=== PATIENT | female | born 1940 | race Caucasian/White ===

== ENCOUNTER 2017-04-26 23:35 | Inpatient (IN) | payer OTHER, MEDICARE ==
[~2017-04-26] VITALS: Ht 154.9 cm; Wt 65.4 kg
[2017-04-26 23:52] VITALS: BP 160/77; PULSE 87; RESP 20; TEMP 98.1; O2SAT 92; O2SAT 99
--- NOTE | 2017-04-27 00:34 | PD ---
HPI Chief Complaint: Psychiatric Symptoms Time Seen by Provider: 00:14 Travel History International Travel<30 days: No Contact w/Intl Traveler<30days: No Traveled to known affect area: No History of Present Illness HPI 76yo F with PMH of dementia, HTN presents to the ED under Stone Act because she was confused and said she wants to kill herself. Pt is from [facility] assisted living and became more upset and confused after her left the facility. Pt denies any chest pain, sob, n/v, abdominal pain, focal weakness or numbness. PFSH Past Medical History Alzheimer's Disease: Yes Asthma: Yes Blood Disorders: No Anxiety: Yes Cardiovascular Problems: Yes Endocrine: Yes Gastrointestinal Disorders: Yes Genitourinary: No Hiatal Hernia: Yes Hypertension: Yes Immune Disorder: No Medical other: Yes (ALCOHOLIC LIVER DISEASE, HYPERLIPIDEMIA) Musculoskeletal: No Neurologic: No Psychiatric: No Respiratory: Yes Thyroid Disease: Yes Tetanus Vaccination: Unknown ?: Not Past Surgical History Endocrine Surgery: Yes Oral Surgery: Yes Thoracic Surgery: Yes Other Surgery: Yes Social History Alcohol Use: Yes Tobacco Use: No Substance Use: No Allergies-Medications (Allergen,Severity, Reaction): Coded Allergies: erythromycin base (Unverified Allergy, Severe, Hives, 04/27/17) Reported Meds & Prescriptions Reported Meds & Active Scripts Active Macrobid (Nitrofurantoin Monohydrate Macrocrystals) 100 Mg Capsule 100 Mg PO BID 7 Days Reported Ventolin Hfa 18 GM Inh (Albuterol Sulfate) 90 Mcg/Act Aer 2 Puff INH Q4H PRN Levothyroxine (Levothyroxine Sodium) 100 Mcg Tab 100 Mcg PO DAILY Hydrochlorothiazide 12.5 Mg Cap 12.5 Mg PO DAILY Donepezil 10 Mg Tab 10 Mg PO HS Buspirone (Buspirone HCl) 5 Mg Tab 5 Mg PO TID Benazepril (Benazepril HCl) 5 Mg Tab 5 Mg PO DAILY Review of Systems Except as stated in HPI: all other systems reviewed are Neg Physical Exam Narrative GENERAL: 76yo F in mild distress. SKIN: Focused skin assessment warm/dry. HEAD: Atraumatic. Normocephalic. EYES: Pupils equal and round. No scleral icterus. No injection or drainage. CARDIOVASCULAR: Regular rate and rhythm. No murmur appreciated. RESPIRATORY: No accessory muscle use. Clear to auscultation. Breath sounds equal bilaterally. GASTROINTESTINAL: Abdomen soft, non-tender, nondistended. MUSCULOSKELETAL: No obvious deformities. No clubbing. No cyanosis. No edema. NEUROLOGICAL: Awake and alert. No obvious cranial nerve deficits. Motor grossly within normal limits. Normal speech. PSYCHIATRIC: Appropriate mood and affect; insight and judgment normal. Data Data Last Documented VS Vital Signs Date Time Temp Pulse Resp B/P (MAP) Pulse Ox O2 Delivery O2 Flow Rate FiO2 04/27/17 10:13 166/74 (104) 04/27/17 09:08 97.8 71 16 97 Room Air Orders Orders Ct Brain W/O Iv Contrast(Rout) (04/27/17 ) Complete Blood Count With Diff (04/27/17 00:26) Basic Metabolic Panel (Bmp) (04/27/17 00:26) Alcohol (Ethanol) (04/27/17 00:26) Salicylates (Aspirin) (04/27/17 00:26) Tylenol (Acetaminophen) (04/27/17 00:26) Urinalysis - C+S If Indicated (04/27/17 01:06) Psych Screen (04/27/17 01:06) Thyroid Stimulating Hormone (04/27/17 00:26) Lorazepam Inj (Ativan Inj) (04/27/17 01:30) Urine Culture (04/27/17 01:15) Writer Producer / Telemetry JOE.Q8H (04/27/17 01:36) Nitrofurantoin Monohyd Macrocr (Macrobid (04/27/17 02:15) Diet Regular Basic (04/27/17 Breakfast) Hydrochlorothiazide (Microzide) (04/27/17 09:45) Admit Order (Ed Use Only) (04/27/17 11:58) Labs Laboratory Tests Test 04/27/17 00:50 04/27/17 01:15 White Blood Count 12.5 TH/MM3 Red Blood Count 4.81 MIL/MM3 Hemoglobin 15.5 GM/DL Hematocrit 45.4 % Mean Corpuscular Volume 94.5 FL Mean Corpuscular Hemoglobin 32.3 PG Mean Corpuscular Hemoglobin Concent 34.2 % Red Cell Distribution Width 13.1 % Platelet Count 308 TH/MM3 Mean Platelet Volume 9.4 FL Neutrophils (%) (Auto) 62.4 % Lymphocytes (%) (Auto) 27.4 % Monocytes (%) (Auto) 8.6 % Eosinophils (%) (Auto) 0.7 % Basophils (%) (Auto) 0.9 % Neutrophils # (Auto) 7.8 TH/MM3 Lymphocytes # (Auto) 3.4 TH/MM3 Monocytes # (Auto) 1.1 TH/MM3 Eosinophils # (Auto) 0.1 TH/MM3 Basophils # (Auto) 0.1 TH/MM3 CBC Comment DIFF FINAL Differential Comment Blood Urea Nitrogen 13 MG/DL Creatinine 0.80 MG/DL Random Glucose 91 MG/DL Calcium Level 9.3 MG/DL Sodium Level 139 MEQ/L Potassium Level 3.9 MEQ/L Chloride Level 99 MEQ/L Carbon Dioxide Level 30.6 MEQ/L Anion Gap 9 MEQ/L Estimat Glomerular Filtration Rate 70 ML/MIN Thyroid Stimulating Hormone 3rd Gen 0.862 uIU/ML Salicylates Level LESS THAN 1.7 MG/DL Acetaminophen Level LESS THAN 2.0 MCG/ML Ethyl Alcohol Level LESS THAN 3 MG/DL Urine Color YELLOW Urine Turbidity HAZY Urine pH 5.5 Urine Specific [place] 1.024 Urine Protein TRACE mg/dL Urine Glucose (UA) NEG mg/dL Urine Ketones 10 mg/dL Urine Occult Blood NEG Urine Nitrite NEG Urine Bilirubin NEG Urine Urobilinogen 2.0 MG/DL Urine Leukocyte Esterase LARGE Urine RBC 3 /hpf Urine WBC 22 /hpf Urine Squamous Epithelial Cells 5 /hpf Urine Transitional Epithelial Cells 1 /hpf Urine Bacteria RARE /hpf Urine Mucus MOD /lpf Microscopic Urinalysis Comment CULTURE INDICATED MDM Medical Decision Making Medical Screen Exam Complete: Yes Emergency Medical Condition: Yes Differential Diagnosis Dementia vs. UTI vs. electrolyte abnormality vs. metastasis Narrative Course 76yo F with dementia brought in under Stone Act for confusion and wanting to . Pt is calm and then having angry episodes and then is calm again. She has not been here since [address] brain. Labs reviewed, WBC 12.5. Sign out to PA to follow up CT, rest of labs, and UA and clear for psych evaluation. Pt became very agitated and a threat to herself and others. Ativan 2mg IM was ordered as well as continuous rn cardiac. Diagnosis Primary Impression: Dementia Qualified Codes: F03.90 - Unspecified dementia without behavioral disturbance Scripts Nitrofurantoin Monohydrate Macrocrystals (Macrobid) 100 Mg Capsule 100 MG PO BID for Infection for 7 Days, #14 CAP 0 Refills Prov: Deepali Wilson DO 04/27/17 Deepali Wilson DO Apr 27, 2017 00:34
[2017-04-27] MEDS ORDERED: HYDR12.57 PO (01:05)
[2017-04-27] MEDS ORDERED: DONE10TA7 PO (01:05)
[2017-04-27] MEDS ORDERED: BUSP5TAB PO (01:05)
[2017-04-27] MEDS ORDERED: LEVO100T5 PO (01:05)
[2017-04-27] MEDS ORDERED: VENTAER INH (01:05)
[2017-04-27] MEDS ORDERED: BENA5TAB PO (01:05)
[2017-04-27 01:17] LABS: AUTOMATED NEUTROPHIL # 7.8 TH/MM3 (1.8-7.7); BASOPHIL # 0.1 TH/MM3 (0-0.2); BASOPHIL % 0.9 % (0.0-2.0); EOSINOPHIL # 0.1 TH/MM3 (0-0.4); EOSINOPHIL % 0.7 % (0.0-4.0); HEMATOCRIT 45.4 % (35.0-46.0); HEMOGLOBIN 15.5 GM/DL (11.6-15.3); LYMPH % 27.4 % (9.0-44.0); LYMPHOCYTE # 3.4 TH/MM3 (1.0-4.8); MEAN CELL VOLUME 94.5 FL (80.0-100.0); MEAN CORPUSCULAR HEMOGLOBIN 32.3 PG (27.0-34.0); MEAN CORPUSCULAR HGB CONC 34.2 % (32.0-36.0); MEAN PLATELET VOLUME 9.4 FL (7.0-11.0); MONO % 8.6 % (0.0-8.0); MONOCYTE # 1.1 TH/MM3 (0-0.9); NEUT % 62.4 % (16.0-70.0); PLATELET COUNT 308 TH/MM3 (150-450); RED BLOOD COUNT 4.81 MIL/MM3 (4.00-5.30); RED CELL DISTRIBUTION WIDTH 13.1 % (11.6-17.2); WHITE BLOOD COUNT 12.5 TH/MM3 (4.0-11.0)
[2017-04-27 01:30] LABS: BACTERIA, URINE RARE /hpf; BILIRUBIN, URINE NEG (NEG); BLOOD, URINE NEG (NEG); GLUCOSE,URINE NEG (NEG); KETONE, URINE 10 mg/dL (NEG); MUCUS URINE MOD /lpf (OCC); NITRITE,URINE NEG (NEG); PH, URINE 5.5 (5.0-8.5); SQUAMOUS EPITHELIAL CELL URINE 5 /hpf (0-5); TRANSITIONAL EPI CELLS, URINE 1 /hpf; URINE COLOR YELLOW (YELLW/STRAW); URINE LEUKOCYTE ESTERASE LARGE (NEG)
[2017-04-27] MEDS ORDERED: LORazepam 2 MG/ML VIAL IM ONE (01:30)
[2017-04-27 01:46] LABS: ACETAMINOPHEN LESS THAN 2.0 MCG/ML (10.0-30.0); BICARBONATE 30.6 MEQ/L (21.0-32.0); BLOOD UREA NITROGEN 13 MG/DL (7-18); CALCIUM 9.3 MG/DL (8.5-10.1); CHLORIDE 99 MEQ/L (98-107); GLOMERULAR FILTRATION RATE 70 ML/MIN (>89); GLUCOSE,RANDOM 91 MG/DL (74-106); SODIUM (NA) 139 MEQ/L (136-145)
[2017-04-27] MEDS ORDERED: NITROFURANTOIN MONOHYD MACROCR 100 MG CAP PO ONE (02:15)
--- NOTE | 2017-04-27 03:07 | RADRPT ---
EXAM DATE/TIME: 04/27/2017 02:36 [place] COMPARISON: No previous studies available for comparison. INDICATIONS : Altered mental status. RADIATION DOSE: 52.13 CTDIvol (mGy) MEDICAL HISTORY : Hypertension. Alzheimer's. SURGICAL HISTORY : None. ENCOUNTER: Initial ACUITY: 1 day PAIN SCALE: Non-responsive LOCATION: cranial TECHNIQUE: Multiple contiguous axial images were obtained of the head. Using automated exposure control and adj ustment of the mA and/or kV according to patient size, radiation dose was kept as low as reasonably a chievable to obtain optimal diagnostic quality images. DICOM format image data is available electro nically for review and comparison. FINDINGS: CEREBRUM: The ventricles are normal for age. No evidence of midline shift, mass lesion, hemorrhage or acute in farction. No extra-axial fluid collections are seen. POSTERIOR FOSSA: The cerebellum and brainstem are intact. The 4th ventricle is midline. The cerebellopontine angle i s unremarkable. EXTRACRANIAL: The visualized portion of the orbits is intact. SKULL: The calvaria is intact. No evidence of skull fracture. CONCLUSION: 1. No evidence of acute intracranial pathology. No masses are identified. Cale Doss MD on April 27, 2017 at 3:03 Board Certified Radiologist. This report was verified electronically.
--- NOTE | 2017-04-27 03:13 | PD ---
Physical Exam Date Seen by Provider: Apr 27, 2017 Time Seen by Provider: 03:10 Data Data Last Documented VS Vital Signs Date Time Temp Pulse Resp B/P (MAP) Pulse Ox O2 Delivery O2 Flow Rate FiO2 04/26/17 23:52 98.1 87 20 160/77 (104) [address] Brain W/O Iv Contrast(Rout) (04/27/17 ) Complete Blood Count With Diff (04/27/17 00:26) Basic Metabolic Panel (Bmp) (04/27/17 00:26) Alcohol (Ethanol) (04/27/17 00:26) Salicylates (Aspirin) (04/27/17 00:26) Tylenol (Acetaminophen) (04/27/17 00:26) Urinalysis - C+S If Indicated (04/27/17 01:06) Psych Screen (04/27/17 01:06) Thyroid Stimulating Hormone (04/27/17 00:26) Lorazepam Inj (Ativan Inj) (04/27/17 01:30) Urine Culture (04/27/17 01:15) Art Preparator / Telemetry JOE.Q8H (04/27/17 01:36) Nitrofurantoin Monohyd Macrocr (Macrobid (04/27/17 02:15) Labs Laboratory Tests Test 04/27/17 00:50 04/27/17 01:15 White Blood Count 12.5 TH/MM3 Red Blood Count 4.81 MIL/MM3 Hemoglobin 15.5 GM/DL Hematocrit 45.4 % Mean Corpuscular Volume 94.5 FL Mean Corpuscular Hemoglobin 32.3 PG Mean Corpuscular Hemoglobin Concent 34.2 % Red Cell Distribution Width 13.1 % Platelet Count 308 TH/MM3 Mean Platelet Volume 9.4 FL Neutrophils (%) (Auto) 62.4 % Lymphocytes (%) (Auto) 27.4 % Monocytes (%) (Auto) 8.6 % Eosinophils (%) (Auto) 0.7 % Basophils (%) (Auto) 0.9 % Neutrophils # (Auto) 7.8 TH/MM3 Lymphocytes # (Auto) 3.4 TH/MM3 Monocytes # (Auto) 1.1 TH/MM3 Eosinophils # (Auto) 0.1 TH/MM3 Basophils # (Auto) 0.1 TH/MM3 CBC Comment DIFF FINAL Differential Comment Blood Urea Nitrogen 13 MG/DL Creatinine 0.80 MG/DL Random Glucose 91 MG/DL Calcium Level 9.3 MG/DL Sodium Level 139 MEQ/L Potassium Level 3.9 MEQ/L Chloride Level 99 MEQ/L Carbon Dioxide Level 30.6 MEQ/L Anion Gap 9 MEQ/L Estimat Glomerular Filtration Rate 70 ML/MIN Thyroid Stimulating Hormone 3rd Gen 0.862 uIU/ML Salicylates Level LESS THAN 1.7 MG/DL Acetaminophen Level LESS THAN 2.0 MCG/ML Ethyl Alcohol Level LESS THAN 3 MG/DL Urine Color YELLOW Urine Turbidity HAZY Urine pH 5.5 Urine Specific [place] 1.024 Urine Protein TRACE mg/dL Urine Glucose (UA) NEG mg/dL Urine Ketones 10 mg/dL Urine Occult Blood NEG Urine Nitrite NEG Urine Bilirubin NEG Urine Urobilinogen 2.0 MG/DL Urine Leukocyte Esterase LARGE Urine RBC 3 /hpf Urine WBC 22 /hpf Urine Squamous Epithelial Cells 5 /hpf Urine Transitional Epithelial Cells 1 /hpf Urine Bacteria RARE /hpf Urine Mucus MOD /lpf Microscopic Urinalysis Comment CULTURE INDICATED MDM Medical Record Reviewed: Yes Supervised Visit with LISET: Yes Interpretation(s) CT brain: No acute intercranial process Laboratory Tests Test 04/27/17 00:50 04/27/17 01:15 White Blood Count 12.5 TH/MM3 Red Blood Count 4.81 MIL/MM3 Hemoglobin 15.5 GM/DL Hematocrit 45.4 % Mean Corpuscular Volume 94.5 FL Mean Corpuscular Hemoglobin 32.3 PG Mean Corpuscular Hemoglobin Concent 34.2 % Red Cell Distribution Width 13.1 % Platelet Count 308 TH/MM3 Mean Platelet Volume 9.4 FL Neutrophils (%) (Auto) 62.4 % Lymphocytes (%) (Auto) 27.4 % Monocytes (%) (Auto) 8.6 % Eosinophils (%) (Auto) 0.7 % Basophils (%) (Auto) 0.9 % Neutrophils # (Auto) 7.8 TH/MM3 Lymphocytes # (Auto) 3.4 TH/MM3 Monocytes # (Auto) 1.1 TH/MM3 Eosinophils # (Auto) 0.1 TH/MM3 Basophils # (Auto) 0.1 TH/MM3 CBC Comment DIFF FINAL Differential Comment Blood Urea Nitrogen 13 MG/DL Creatinine 0.80 MG/DL Random Glucose 91 MG/DL Calcium Level 9.3 MG/DL Sodium Level 139 MEQ/L Potassium Level 3.9 MEQ/L Chloride Level 99 MEQ/L Carbon Dioxide Level 30.6 MEQ/L Anion Gap 9 MEQ/L Estimat Glomerular Filtration Rate 70 ML/MIN Thyroid Stimulating Hormone 3rd Gen 0.862 uIU/ML Salicylates Level LESS THAN 1.7 MG/DL Acetaminophen Level LESS THAN 2.0 MCG/ML Ethyl Alcohol Level LESS THAN 3 MG/DL Urine Color YELLOW Urine Turbidity HAZY Urine pH 5.5 Urine Specific [place] 1.024 Urine Protein TRACE mg/dL Urine Glucose (UA) NEG mg/dL Urine Ketones 10 mg/dL Urine Occult Blood NEG Urine Nitrite NEG Urine Bilirubin NEG Urine Urobilinogen 2.0 MG/DL Urine Leukocyte Esterase LARGE Urine RBC 3 /hpf Urine WBC 22 /hpf Urine Squamous Epithelial Cells 5 /hpf Urine Transitional Epithelial Cells 1 /hpf Urine Bacteria RARE /hpf Urine Mucus MOD /lpf Microscopic Urinalysis Comment CULTURE INDICATED Differential Diagnosis MDM: High Differential diagnoses: Schizophrenia, schizoaffective disorder, bipolar, anxiety, depression, adjustment reaction, mood disorder NOS, ODD, depressive disorder NOS, dementia, dementia with agitation, psychosis NOS, substance induced mood disorder, DMDD, Asperger syndrome, infection,electrolyte abnormality, malingering. Narrative Course Mental health screening discussed with the patient. Psychiatric screen ordered. Patient is given Macrobid 100 mg by mouth for UTI. Patient is also given 2 mg of Ativan for agitation. She has been out to the nursing station multiple times raising her voice and becoming a barrier to her care. The patient has been medically cleared. This is medical clearance for psychiatric admission, UTI Diagnosis Primary Impression: Dementia Qualified Codes: F03.90 - Unspecified dementia without behavioral disturbance Additional Impressions: Medical clearance for psychiatric admission UTI (urinary tract infection) Qualified Codes: N30.00 - Acute cystitis without hematuria Med/Other Pt SpecificInfo: Prescription(s) given Condition: Stable Raymundo Santos Apr 27, 2017 03:13
[2017-04-27] MEDS ORDERED: MACR100C2 PO (03:14)
[2017-04-27 09:08] VITALS: BP 177/75; PULSE 71; RESP 16; TEMP 97.8; O2SAT 97
[2017-04-27] MEDS ORDERED: HYDROCHLOROTHIAZIDE 12.5 MG CAP PO ONE (09:45)
[2017-04-27 10:13] VITALS: BP 166/74
[2017-04-27] MEDS ORDERED: LORazepam 2 MG/ML VIAL IM PRN (12:00)
[2017-04-27] MEDS ORDERED: ALUMINUM/MAGNESIUM/SIMETH 30 ML CUP PO PRN (12:00)
[2017-04-27] MEDS ORDERED: MAGNESIUM HYDROXIDE SUSP 30 ML CUP PO PRN (12:00)
[2017-04-27] MEDS ORDERED: ACETAMINOPHEN 325 MG TAB PO PRN (12:00)
[2017-04-27] MEDS ORDERED: ALBUTEROL SULFATE 90 MCG/ACT HFA 8 GM INHALER INH PRN (12:15)
--- NOTE | 2017-04-27 12:15 | HHI.HP ---
Provisional Diagnosis Admission Date [place]. Dementia with behavioral problems Certification of Person's Competence To Provide Express and Informed Consent I have personally examined Janette Pandya , a person being served at [facility] on, Apr 27, 2017 12:04. Express and informed consent means consent voluntarily given in writing, by a competent person, after sufficient explanation and disclosure of the subject matter involved to enable the person to make a knowing and willful decision without any element of force, fraud, deceit, duress, or other form of constraint or coercion. This person is 18 years of age or older, is not now known to be incompetent to consent to treatment with a guardian advocate, and does not have a health care surrogate or proxy currently making medical treatment decisions. I have found this person to be one of the following: [] Competent to provide express and informed consent, as defined above, for voluntary admission to this facility and is competent to provide express and informed consent for treatment. He/she has the consistent capacity to make well reasoned, willful, and knowing decisions concerning his or her medical or mental health treatment. The person fully and consistently understands the purpose of the admission for examination/placement and is fully capable of personally exercising all rights [place] [x] Incompetent to provide express and informed consent to voluntary admission, and this is incompetent to provide express and informed consent to treatment. The person must be transferred to involuntary status and a petition for a guardian advocate filed with the Circuit Court. [] Refusing to provide express and informed consent to voluntary admission but is competent to provide express and informed consent for treatment. The person must be discharged or transferred to involuntary status. Form shall be completed within 24 hours of a person's arrival at the receiving facility and filed in the clinical record of each person: 1. Admitted on a voluntary basis 2. Permitted to provide express and informed consent to his/her own treatment 3. Allowed to transfer from involuntary to voluntary status 4. Prior to permitting a person to consent to his or her own treatment after having been previously found incompetent to consent to treatment. History of Present Illness Capacity: Lacks Capacity HPI This is a 76-year-old female with a history of Alzheimer's dementia, brought in under a Stone act initiated by law enforcement. According to the Stone act, the patient was disoriented when she was at her residence, [place] a period one of the staff there indicated the patient wanted to throw herself from the sixth floor of the building. The patient appeared very confused and upset. The staff member indicated the patient was not taking her medicines as prescribed and continuously indicated that she wanted to and to find her . (The patient told this physician her was laying sod at their manufactured home. The patient's daughter told this physician the patient's is from her while he gets treatment for opiate abuse.) The personal injury law specialist also noted that the patient did not appear to remember things and indeed said that she just wanted to . Upon interview with this physician, the patient was initially attempting to take a bath on the floor of her emergency department room. She is disoriented to time, date and situation as well as place. She was oriented only to person. She denied making statements that she wanted to kill herself but certainly was unable to provide accurate information about other items in her history. When this physician spoke with the patient's daughter, who resides in [place] and has power of loading machine operator, a daughter indicated her mother was indeed confused, suffering from dementia and getting worse. Review of Systems ROS Limitations: Clinical Condition Psychiatric: COMPLAINS OF: Anxiety, Confusion, Suicidal Ideation Except as stated in HPI: all other systems reviewed are Neg Past Psych History Psychological trauma history Unknown. Patient poor historian. Violence risk - others (6 mos) Moderate to high Violence risk - self (6 mos) High Substance Abuse History Drugs/Alcohol past 12 months According to the patient's record, she has a history of alcoholism. Past Family Social History Coded Allergies: erythromycin base (Unverified Allergy, Severe, Hives, 04/27/17) Active Scripts Nitrofurantoin Monohydrate Macrocrystals (Macrobid) 100 Mg Capsule, 100 MG PO BID for Infection for 7 Days, #14 CAP 0 Refills Prov:Deepali Wilson 04/27/17 Reported Medications Albuterol 18 GM Inh (Ventolin Hfa 18 GM Inh) 90 Mcg/Act Aer, 2 PUFF INH Q4H Y for SHORTNESS OF BREATH, #1 INHALER 0 Refills 04/27/17 Levothyroxine (Levothyroxine) 100 Mcg Tab, 100 MCG PO DAILY for Thyroid, #30 TAB 0 Refills 04/27/17 Hydrochlorothiazide (Hydrochlorothiazide) 12.5 Mg Cap, 12.5 MG PO DAILY, #30 CAP 0 Refills 04/27/17 Donepezil (Donepezil) 10 Mg Tab, 10 MG PO HS for Dementia, #30 TAB 0 Refills 04/27/17 Buspirone (Buspirone) 5 Mg Tab, 5 MG PO TID for Anxiety, TAB 0 Refills 04/27/17 Benazepril (Benazepril) 5 Mg Tab, 5 MG PO DAILY for Blood Pressure Management, # 30 TAB 0 Refills 04/27/17 Family Psych History Unknown. Patient is a poor historian. Social History Patient is retired and unemployed. She has been residing by herself at [facility] since her moved out, approximately 2 weeks ago. She does not have a current history of drug or alcohol abuse. However, she has a previous history of alcohol abuse. Patient's daughter is supportive. Patient's Strengths (min. 2) Supportive daughter and has access to healthcare. Physical Exam GENERAL: SKIN: Warm and dry. HEAD: Normocephalic. EYES: No scleral icterus. No injection or drainage. NECK: Supple, trachea midline. No JVD or lymphadenopathy. CARDIOVASCULAR: Regular rate and rhythm without murmurs, gallops, or rubs. RESPIRATORY: Breath sounds equal bilaterally. No accessory muscle use. GASTROINTESTINAL: Abdomen soft, non-tender, nondistended. MUSCULOSKELETAL: No cyanosis, or edema. BACK: Nontender without obvious deformity. No CVA tenderness. Vital Signs Vital Signs Date Time Temp Pulse Resp B/P (MAP) Pulse Ox O2 Delivery O2 Flow Rate FiO2 04/27/17 10:13 166/74 (104) 04/27/17 09:08 97.8 71 16 97 Room Air I/O 04/27/17 04/27/17 04/28/17 08:00 16:00 00:00 Intake Total 300 ml Balance 300 ml Lab Results Test 04/27/17 00:50 04/27/17 01:15 White Blood Count 12.5 TH/MM3 Red Blood Count 4.81 MIL/MM3 Hemoglobin 15.5 GM/DL Hematocrit 45.4 % Mean Corpuscular Volume 94.5 FL Mean Corpuscular Hemoglobin 32.3 PG Mean Corpuscular Hemoglobin Concent 34.2 % Red Cell Distribution Width 13.1 % Platelet Count 308 TH/MM3 Mean Platelet Volume 9.4 FL Neutrophils (%) (Auto) 62.4 % Lymphocytes (%) (Auto) 27.4 % Monocytes (%) (Auto) 8.6 % Eosinophils (%) (Auto) 0.7 % Basophils (%) (Auto) 0.9 % Neutrophils # (Auto) 7.8 TH/MM3 Lymphocytes # (Auto) 3.4 TH/MM3 Monocytes # (Auto) 1.1 TH/MM3 Eosinophils # (Auto) 0.1 TH/MM3 Basophils # (Auto) 0.1 TH/MM3 CBC Comment DIFF FINAL Differential Comment Blood Urea Nitrogen 13 MG/DL Creatinine 0.80 MG/DL Random Glucose 91 MG/DL Calcium Level 9.3 MG/DL Sodium Level 139 MEQ/L Potassium Level 3.9 MEQ/L Chloride Level 99 MEQ/L Carbon Dioxide Level 30.6 MEQ/L Anion Gap 9 MEQ/L Estimat Glomerular Filtration Rate 70 ML/MIN Thyroid Stimulating Hormone 3rd Gen 0.862 uIU/ML Salicylates Level LESS THAN 1.7 MG/DL Acetaminophen Level LESS THAN 2.0 MCG/ML Ethyl Alcohol Level LESS THAN 3 MG/DL Urine Color YELLOW Urine Turbidity HAZY Urine pH 5.5 Urine Specific [place] 1.024 Urine Protein TRACE mg/dL Urine Glucose (UA) NEG mg/dL Urine Ketones 10 mg/dL Urine Occult Blood NEG Urine Nitrite NEG Urine Bilirubin NEG Urine Urobilinogen 2.0 MG/DL Urine Leukocyte Esterase LARGE Urine RBC 3 /hpf Urine WBC 22 /hpf Urine Squamous Epithelial Cells 5 /hpf Urine Transitional Epithelial Cells 1 /hpf Urine Bacteria RARE /hpf Urine Mucus MOD /lpf Microscopic Urinalysis Comment CULTURE INDICATED Date/Time Source Procedure Growth Status 04/27/17 01:15 Urine Clean Catch Urine Culture Pending Received Mental Status Examination Appearance: Appropriate Consciousness: Alert Orientation: Person Motor Activity: Normal gait Speech: Unremarkable Language: Adequate Fund of Knowledge: Inadequate Attention and Concentration: Easily Distracted Memory: Impaired Mood: Irritable Affect: Labile Thought Process & Associations: Intact Thought Content: Delusional Hallucination Type: None Delusion Type: Bizarre Suicidal Ideation: Yes Suicidal Plan: No Suicidal Intention: No Homicidal Ideation: No Homicidal Plan: No Homicidal Intention: No Insight: Poor Judgment: Poor Assessment & Plan Problem List: (1) Alzheimer's dementia with behavioral disturbance ICD Codes: G30.9 - Alzheimer's disease, unspecified; F02.81 - Dementia in other diseases classified elsewhere with behavioral disturbance (2) Dementia in other diseases classified elsewhere with behavioral disturbance ICD Codes: F02.81 - Dementia in other diseases classified elsewhere with behavioral disturbance Assessment & Plan Estimated LOS: days. 76-year-old female brought in under a Stone act for confusion and suicidal ideation, not taking her medicines as prescribed and inability to care for herself. For these reasons, the patient is being admitted for further evaluation and treatment. Patient is not considered competent to make medical decisions and her daughter was contacted by this physician and is willing to do so. This physician ordered a CBC, comprehensive metabolic panel, hemoglobin A1c and lipid panel. This is to determine if the patient has some infectious process or metabolic process which might be causing or contributing to her confusion and suicidality. Additionally, because of her age and psychotropic medicines, this physician is interested in getting a lipid panel and hemoglobin A1c to determine if she might have evidence of diabetes or some cardiovascular issue related to high cholesterol, etc. This physician also ordered thyroid stimulating hormone level, vitamin B-12 level and vitamin D level, again to determine if any deficiency in these areas is causing or contributing to the patient's confusion and emotional disturbance. This physician also ordered an EKG to determine the patient's cardiac conduction status, which can be adversely affected by both psychotropic and nonpsychotropic medicines. I have been consult was placed as the patient does have a history of hypothyroidism and cardiovascular disease. This physician spoke with the patient's nurse, Nenita, regarding her recent behavior. Case management will also be involved to assist with information gathering and disposition planning. Redd Miller MD Apr 27, 2017 12:15
[2017-04-27 13:24] VITALS: BP 137/61; PULSE 88; RESP 16; O2SAT 95
[2017-04-27 18:00] VITALS: BP 178/79; PULSE 88; RESP 18; TEMP 97.9; O2SAT 99
--- NOTE | 2017-04-27 20:44 | PD.CONS ---
HPI Service [facility] Hospitalists Consult Requested By Psychiatry Reason for Consult Medical management Primary Care Physician Unknown Diagnoses: History of Present Illness 76 years old female with history of dementia hypertension admitted to the psychiatry word under Stone act after she was confused trying to kill herself, Formerly [facility] consulted for medical management. Patient was laying in bed denied any chest pain short of breath abdominal pain diarrhea constipation fever or chillsH/O hypertension alcoholic liver disease, hyperlipidemia and hypothyroidism as well as Alzheimer and asthma. To me she denied being aware of memory problems,Urinalysis ordered by ED or psychiatry showed positive leukocyte esterase with WBC 22 Review of Systems All systems reviewed and was positive for what is mentioned in history of present illness otherwise negative Past Family Social History Allergies: Coded Allergies: erythromycin base (Unverified Allergy, Severe, Hives, 04/27/17) Past Medical History as per history of present illness Past Surgical History Benign surgery in the past Family History Review with the patient,not aware of significant medical history runs in his family Social History As above history of alcohol abuse no tobacco or illicit drug abuse Physical Exam Vital Signs Vital Signs Date Time Temp Pulse Resp B/P (MAP) Pulse Ox O2 Delivery O2 Flow Rate FiO2 04/27/17 18:00 97.9 88 18 178/79 (112) 99 04/27/17 13:44 04/27/17 13:24 88 16 137/61 (86) 95 Room Air 04/27/17 10:13 166/74 (104) 04/27/17 09:08 97.8 71 16 177/75 (109) 97 Room Air 04/26/17 23:52 98.1 87 20 160/77 (104) 99 Physical Exam GENERAL: This is a well-nourished, well-developed patient, in no apparent distress. SKIN: No rashes, warm and dry HEAD: Atraumatic. Normocephalic. EYES: Pupils equal round and reactive. Extraocular motions intact. No scleral icterus. ENT: Nose without bleeding, or drainage, Airway patent. NECK: Trachea midline. Supple CARDIOVASCULAR: Regular rate and rhythm without murmurs, gallops, or rubs. RESPIRATORY: Fair air entry bilaterally. No wheezes, rales, or rhonchi. GASTROINTESTINAL: Abdomen soft, non-tender, nondistended. Positive bowel sounds MUSCULOSKELETAL: Extremities without clubbing, cyanosis, or edema. Pedal pulses appreciated NEUROLOGICAL: Awake and alert. Moves all extremity. Normal speech.no focal neurological deficit Laboratory Laboratory Tests Test 04/27/17 00:50 04/27/17 01:15 White Blood Count 12.5 Red Blood Count 4.81 Hemoglobin 15.5 Hematocrit 45.4 Mean Corpuscular Volume 94.5 Mean Corpuscular Hemoglobin 32.3 Mean Corpuscular Hemoglobin Concent 34.2 Red Cell Distribution Width 13.1 Platelet Count 308 Mean Platelet Volume 9.4 Neutrophils (%) (Auto) 62.4 Lymphocytes (%) (Auto) 27.4 Monocytes (%) (Auto) 8.6 Eosinophils (%) (Auto) 0.7 Basophils (%) (Auto) 0.9 Neutrophils # (Auto) 7.8 Lymphocytes # (Auto) 3.4 Monocytes # (Auto) 1.1 Eosinophils # (Auto) 0.1 Basophils # (Auto) 0.1 CBC Comment DIFF FINAL Differential Comment Blood Urea Nitrogen 13 Creatinine 0.80 Random Glucose 91 Calcium Level 9.3 Sodium Level 139 Potassium Level 3.9 Chloride Level 99 Carbon Dioxide Level 30.6 Anion Gap 9 Estimat Glomerular Filtration Rate 70 Thyroid Stimulating Hormone 3rd Gen 0.862 Salicylates Level LESS THAN 1.7 Acetaminophen Level LESS THAN 2.0 Ethyl Alcohol Level LESS THAN 3 Urine Color YELLOW Urine Turbidity HAZY Urine pH 5.5 Urine Specific Goodrich 1.024 Urine Protein TRACE Urine Glucose (UA) NEG Urine Ketones 10 Urine Occult Blood NEG Urine Nitrite NEG Urine Bilirubin NEG Urine Urobilinogen 2.0 Urine Leukocyte Esterase LARGE Urine RBC 3 Urine WBC 22 Urine Squamous Epithelial Cells 5 Urine Transitional Epithelial Cells 1 Urine Bacteria RARE Urine Mucus MOD Microscopic Urinalysis Comment CULTURE INDICATED Date/Time Source Procedure Growth Status 04/27/17 01:15 Urine Clean Catch Urine Culture Pending Received Result Diagram: 04/27/17 0050 04/27/17 0050 Imaging Last Impressions Head CT 04/27/17 0000 Signed Impressions: Service Date/Time: Thursday, April 27, 2017 02:36 - CONCLUSION: 1. No evidence of acute intracranial pathology. No masses are identified. Cale Doss MD Assessment and Plan Assessment and Plan 76 years old female admitted to [facility] due to suicide attempt, hospitalist consulted for medical management Hypertension Alcoholic liver disease Hyperlipidemia Hypothyroidism History of asthma History of Alzheimer DVT prophylaxis with ambulation Recommendation: Agree with continuing lisinopril hydrochlorothiazide levothyroxin and Aricept, patient started on Macrobid for UTI I agree with that for 3 days in case she is symptomatic. Agree with BMP ordered for tomorrow to check for her electrolyte and kidney function, we will follow along with you, Thank you for this consultation Discussed Condition With Patient Jose Alejandro Goodman MD Apr 27, 2017 20:44
[2017-04-27] MEDS: NITROFURANTOIN MONOHYD MACROCR 100 MG CAP PO SCH (21:00)
[2017-04-27] MEDS: DONEPEZIL HCL 5 MG TAB PO SCH (22:27)
[2017-04-28 05:43] VITALS: BP 161/74; PULSE 64; RESP 18; TEMP 97.2; O2SAT 96
[2017-04-28] MEDS: LEVOTHYROXINE SODIUM 100 MCG TAB PO SCH (05:45)
[2017-04-28] MEDS: HYDROCHLOROTHIAZIDE 12.5 MG CAP PO SCH (09:00)
[2017-04-28] MEDS: LISINOPRIL 5 MG TAB PO SCH (09:00)
[2017-04-28] MEDS: NITROFURANTOIN MONOHYD MACROCR 100 MG CAP PO SCH ×2 (09:00→22:03)
[2017-04-28 10:42] VITALS: BP 164/71; PULSE 74
--- NOTE | 2017-04-28 11:23 | HHI.PYPN ---
Subjective Remarks Patient initially admitted by Dr. Redd Miller to the initial psychiatric history and physical. I reviewed the chart and agreed with. I had done the initial psychiatric admission template orders. And review the medical reconciliation. Dr. Miller has done first opinion petition supporting Stone act I agree, patient meets criteria for involuntary psychiatric hospital physician the Stone act thus I'll cosign second opinion petition supporting Stone act. Patient seen by me in her room with nurse Odette. Patient laying in bed. She is alert though diffusely confused as to place time and situation. She is mildly irritable but acknowledging her poor memory. Though she does denies suicidality and does deny voices. She does not remember where she was living prior to coming in here. For now will continue medications per the med reconciliation. We'll attempt to reach patient's family to get further information concerning this lady Review of Systems Except as stated in HPI: all other systems reviewed are Neg Mental Status Examination Appearance: Appropriate Consciousness: Alert Orientation: Person Motor Activity: Normal gait Speech: Unremarkable Language: Adequate Fund of Knowledge: Inadequate Attention and Concentration: Easily Distracted Memory: Impaired Mood: Irritable Affect: Labile Thought Process & Associations: Intact Thought Content: Delusional Hallucination Type: None Delusion Type: Bizarre Suicidal Ideation: Yes Suicidal Plan: No Suicidal Intention: No Homicidal Ideation: No Homicidal Plan: No Homicidal Intention: No Insight: Poor Judgment: Poor Results Labs Date/Time Source Procedure Growth Status 04/27/17 01:15 Urine Clean Catch Urine Culture Pending Received Vitals/IOs Vital Signs Date Time Temp Pulse Resp B/P (MAP) Pulse Ox O2 Delivery O2 Flow Rate FiO2 04/28/17 10:42 74 164/71 (102) 04/28/17 05:43 97.2 18 96 04/27/17 13:24 Room Air Assessment & Plan Problem List: (1) Dementia in other diseases classified elsewhere with behavioral disturbance ICD Codes: F02.81 - Dementia in other diseases classified elsewhere with behavioral disturbance (2) ALZHEIMER'S DISEASE WITH LATE ONSET ICD Codes: G30.1 - ALZHEIMER'S DISEASE WITH LATE ONSET Assessment & Plan Estimated LOS: days patient remains confused and demented, somewhat irritable also. Compliant medication. For now continue treatment. Need to get further information from family if available to help work with placement issues Justification for Cont. Inpt. At this time patient will decompensate placed in a lower level of care Discharge Planning Need to get further information from family about placement issues Request HC Surrog/Guard Advoc?: Yes Silas Russo MD Apr 28, 2017 11:23
[2017-04-28 11:45] LABS: AUTOMATED NEUTROPHIL # 3.8 TH/MM3 (1.8-7.7); BASOPHIL # 0.1 TH/MM3 (0-0.2); BASOPHIL % 0.8 % (0.0-2.0); EOSINOPHIL # 0.4 TH/MM3 (0-0.4); EOSINOPHIL % 6.1 % (0.0-4.0); HEMATOCRIT 43.5 % (35.0-46.0); LYMPH % 20.8 % (9.0-44.0); LYMPHOCYTE # 1.3 TH/MM3 (1.0-4.8); MEAN CELL VOLUME 94.1 FL (80.0-100.0); MEAN CORPUSCULAR HEMOGLOBIN 32.5 PG (27.0-34.0); MEAN CORPUSCULAR HGB CONC 34.6 % (32.0-36.0); MEAN PLATELET VOLUME 9.8 FL (7.0-11.0); MONO % 12.3 % (0.0-8.0); MONOCYTE # 0.8 TH/MM3 (0-0.9); PLATELET COUNT 265 TH/MM3 (150-450); RED BLOOD COUNT 4.62 MIL/MM3 (4.00-5.30); RED CELL DISTRIBUTION WIDTH 13.3 % (11.6-17.2); WHITE BLOOD COUNT 6.4 TH/MM3 (4.0-11.0)
[2017-04-28 12:18] LABS: ALBUMIN 3.1 GM/DL (3.4-5.0); ALT (GPT) 16 U/L (10-53); AST (GOT) 20 U/L (15-37); BICARBONATE 33.7 MEQ/L (21.0-32.0); BLOOD UREA NITROGEN 5 MG/DL (7-18); CALCIUM 9.3 MG/DL (8.5-10.1); CHLORIDE 96 MEQ/L (98-107); CHOLESTEROL 238 MG/DL (120-200); CREATININE 0.71 MG/DL (0.50-1.00); GLOMERULAR FILTRATION RATE 80 ML/MIN (>89); GLUCOSE,RANDOM 82 MG/DL (74-106); SODIUM (NA) 137 MEQ/L (136-145); TRIGLYCERIDES 129 MG/DL (42-150)
[2017-04-28 12:28] LABS: ALKALINE PHOSPHATASE 68 U/L (45-117); CHOLESTEROL/ HDL RATIO 3.74 RATIO; HDL CHOLESTEROL 63.5 MG/DL (40.0-60.0); LDL CHOLESTEROL 149 MG/DL (0-99); TOTAL BILIRUBIN ADULT 1.2 MG/DL (0.2-1.0); TOTAL PROTEIN 6.7 GM/DL (6.4-8.2)
[2017-04-28] MEDS: LORazepam 1 MG TAB PO PRN ×2 (12:30→22:03)
[2017-04-28] MEDS ORDERED: POTASSIUM CHLORIDE 10 MEQ CONTROLLED RELEASE TAB PO ONE (13:15)
[2017-04-28] MEDS ORDERED: POTASSIUM CHLORIDE 10 MEQ CONTROLLED RELEASE TAB PO SCH (13:30)
[2017-04-28 13:39] LABS: HEMOGLOBIN A1C 5.3 % (4.3-6.0)
[2017-04-28] MEDS ORDERED: diphenhydrAMINE HCL 50 MG/ML VIAL ONE (15:32)
[2017-04-28] MEDS ORDERED: HALOPERIDOL LACTATE 5 MG/ML AMP ONE (15:32)
[2017-04-28] MEDS ORDERED: HALOPERIDOL LACTATE 5 MG/ML AMP IM STA (15:36)
[2017-04-28] MEDS ORDERED: LORazepam 2 MG/ML VIAL IM STA (15:36)
[2017-04-28] MEDS ORDERED: diphenhydrAMINE HCL 50 MG/ML VIAL IM STA (15:36)
[2017-04-28 16:45] VITALS: BP 100/62; PULSE 73; RESP 18; TEMP 97.2; O2SAT 95
[2017-04-28] MEDS: POTASSIUM CHLORIDE 10 MEQ CONTROLLED RELEASE TAB PO SCH ×2 (17:53→22:05)
--- NOTE | 2017-04-28 18:23 | HHI.PR ---
Subjective Remarks "Continue get me out of here" Sitting on the chair denied any acute symptoms, her potassium today is 2.7 and her cholesterol panel showing increased total cholesterol and LDL Objective Vitals Vital Signs Date Time Temp Pulse Resp B/P (MAP) Pulse Ox O2 Delivery O2 Flow Rate FiO2 04/28/17 16:45 97.2 73 18 100/62 (75) 95 04/28/17 10:42 74 164/71 (102) 04/28/17 05:43 97.2 64 18 161/74 (103) 96 I/O 04/27/17 04/27/17 04/27/17 04/28/17 04/28/17 04/28/17 07:00 15:00 23:00 07:00 15:00 23:00 Intake Total 500 ml 240 ml 120 ml Balance 500 ml 240 ml 120 ml Intake Oral 500 ml 240 ml 120 ml # Voids 2 1 1 Result Diagram: 04/28/17 1036 04/28/17 1036 Objective Remarks GENERAL: This is a well-nourished, well-developed patient, in no apparent distress. SKIN: No rashes, warm and dry HEAD: Atraumatic. Normocephalic. EYES: Pupils equal round and reactive. Extraocular motions intact. No scleral icterus. ENT: Nose without bleeding, or drainage, Airway patent. NECK: Trachea midline. Supple CARDIOVASCULAR: Regular rate and rhythm without murmurs, gallops, or rubs. RESPIRATORY: Fair air entry bilaterally. No wheezes, rales, or rhonchi. GASTROINTESTINAL: Abdomen soft, non-tender, nondistended. Positive bowel sounds MUSCULOSKELETAL: Extremities without clubbing, cyanosis, or edema. Pedal pulses appreciated NEUROLOGICAL: Awake and alert. Moves all extremity. Normal speech.no focal neurological deficit A/P Assessment and Plan 76 years old female admitted to [facility] due to suicide attempt, hospitalist consulted for medical management Acute hypokalemia, no report of diarrhea, vision not on diuretic Hypertension Alcoholic liver disease Hyperlipidemia withTotal cholesterol 238, LDL 149, HDL 63 Hypothyroidism History of asthma History of Alzheimer DVT prophylaxis with ambulation Recommendation: Monitor TAMMY, replete potassium will give 60 mEq by mouth 1 now and followed with 40 mEq after 4 hours then repeat potassium around 10 PM Continue lisinopril hydrochlorothiazide levothyroxin and Aricept, patient started on Macrobid for UTI I agree with that for 3 days in case she is symptomatic. Start Lipitor Jose Alejandro Goodman MD Apr 28, 2017 18:23
--- NOTE | 2017-04-28 18:35 | EKG ---
Date Performed: 04/27/2017 Time Performed: 13:18:17 PTAGE: 76 years EKG: Sinus rhythm WITH OCCASIONAL VENTRICULAR PREMATURE COMPLEXES NONSPECIFIC ST & T-WAVE ABNORMALITY BORDERLINE ECG PREVIOUS TRACING : 04/13/2005 13.30 SINCE PRIOR TRACING THERE HAS BEEN AN INCREASE IN THE LATER AL ST SEGMENT CHANGES AND THE PVC'S ARE NEW. Clinical correlation is recommended DOCTOR: Odette Dimas Interpretating Date/Time 04/28/2017 18:33:23
[2017-04-28] MEDS: ATORVASTATIN 20 MG TAB PO SCH (22:03)
[2017-04-28] MEDS: DONEPEZIL HCL 5 MG TAB PO SCH (22:03)
[2017-04-29] MEDS ORDERED: POTASSIUM CHLORIDE 20 MEQ CONTROLLED RELEASE TAB PO ONE (03:00)
[2017-04-29] MEDS: LEVOTHYROXINE SODIUM 100 MCG TAB PO SCH (04:35)
[2017-04-29 06:18] VITALS: BP 142/63; PULSE 83; RESP 16; TEMP 97.7; O2SAT 94
[2017-04-29] MEDS: HYDROCHLOROTHIAZIDE 12.5 MG CAP PO SCH (08:12)
[2017-04-29] MEDS: NITROFURANTOIN MONOHYD MACROCR 100 MG CAP PO SCH (08:12)
[2017-04-29] MEDS: LISINOPRIL 5 MG TAB PO SCH (08:12)
--- NOTE | 2017-04-29 11:54 | HHI.PYPN ---
Subjective Remarks Patient seen in her room with nurse Odette. Chart reviewed. Patient did show some out of control behaviors last night necessitating ETO of Haldol Ativan and Benadryl. Patient is calm this morning napping but arousable to continues diffusely confused. Did not remember me from yesterday. For now continue observation assessment Review of Systems Except as stated in HPI: all other systems reviewed are Neg Mental Status Examination Appearance: Appropriate Consciousness: Alert Orientation: Person Motor Activity: Normal gait Speech: Unremarkable Language: Adequate Fund of Knowledge: Inadequate Attention and Concentration: Easily Distracted Memory: Impaired Mood: Irritable Affect: Labile Thought Process & Associations: Intact Thought Content: Delusional Hallucination Type: None Delusion Type: Bizarre Suicidal Ideation: Yes Suicidal Plan: No Suicidal Intention: No Homicidal Ideation: No Homicidal Plan: No Homicidal Intention: No Insight: Poor Judgment: Poor Results Labs Test 04/28/17 22:54 Potassium Level 3.3 MEQ/L Date/Time Source Procedure Growth Status 04/27/17 01:15 Urine Clean Catch Urine Culture - Final 50-100,000 CFU/ML MIXED GRAM POSITIVE... Complete Vitals/IOs Vital Signs Date Time Temp Pulse Resp B/P (MAP) Pulse Ox O2 Delivery O2 Flow Rate FiO2 04/29/17 06:18 97.7 83 16 142/63 (89) 94 04/27/17 13:24 Room Air Intake and Output 04/29/17 04/29/17 04/29/17 07:59 15:59 23:59 Intake Total 120 ml 0 ml Balance 120 ml 0 ml Assessment & Plan Problem List: (1) Dementia in other diseases classified elsewhere with behavioral disturbance ICD Codes: F02.81 - Dementia in other diseases classified elsewhere with behavioral disturbance (2) ALZHEIMER'S DISEASE WITH LATE ONSET ICD Codes: G30.1 - ALZHEIMER'S DISEASE WITH LATE ONSET Assessment & Plan Estimated LOS: days patient continues confused and demented, did show behavior disorders last night. Needing ETO. We'll continue observation Justification for Cont. Inpt. At this time patient will decompensate if placed on lower level of care Discharge Planning To be determined Request HC Surrog/Guard Advoc?: Yes Silas Russo MD Apr 29, 2017 11:54
[2017-04-29 12:56] LABS: BICARBONATE 32.1 MEQ/L (21.0-32.0); CALCIUM 9.4 MG/DL (8.5-10.1); CREATININE 1.19 MG/DL (0.50-1.00); MAGNESIUM 2.4 MG/DL (1.5-2.5)
[2017-04-29] MEDS: LORazepam 1 MG TAB PO PRN ×2 (15:03→22:00)
--- NOTE | 2017-04-29 15:38 | HHI.PR ---
Subjective Remarks F/u hypokalemia. No vomiting but po not optimal dw RN. 2 loose stool no fever, nausea and abd pain Objective Vitals Vital Signs Date Time Temp Pulse Resp B/P (MAP) Pulse Ox O2 Delivery O2 Flow Rate FiO2 04/29/17 06:18 97.7 83 16 142/63 (89) 94 04/28/17 16:45 97.2 73 18 100/62 (75) 95 I/O 04/28/17 04/28/17 04/28/17 04/29/17 04/29/17 04/29/17 07:00 15:00 23:00 07:00 15:00 23:00 Intake Total 120 ml 0 ml 120 ml Balance 120 ml 0 ml 120 ml Intake Oral 120 ml 0 ml 120 ml # Voids 1 1 Result Diagram: 04/28/17 1036 04/29/17 1155 Imaging Last Impressions Head CT 04/27/17 0000 Signed Impressions: Service Date/Time: Thursday, April 27, 2017 02:36 - CONCLUSION: 1. No evidence of acute intracranial pathology. No masses are identified. Cale Doss MD Objective Remarks GENERAL: This is a well-nourished, well-developed patient, in no apparent distress. Not dehydrated SKIN: No rashes, warm and dry CARDIOVASCULAR: Regular rate and rhythm without murmurs, gallops, or rubs. RESPIRATORY: Fair air entry bilaterally. No wheezes, rales, or rhonchi. GASTROINTESTINAL: Abdomen soft, non-tender, nondistended. Positive bowel sounds MUSCULOSKELETAL: Extremities without clubbing, cyanosis, or edema. Pedal pulses appreciated NEUROLOGICAL: Awake and alert. Moves all extremity. Normal speech.no focal neurological deficit A/P Assessment and Plan 76 [facility], hospitalist consulted for medical management Acute hypokalemia from HCTZ and loose stool. Improved but has stool loose stool. Hold her potassium for now. Repeat BMP and magnesium in the morning Hypertension. Stable continue lisinopril but hold Hydrocort thiazide Hyperlipidemia. Continue Lipitor Abnormal urinalysis urine culture with contaminants discontinue Macrobid Acute on chronic kidney disease stage III. Consider IV hydration if worse. DVT prophylaxis with ambulation Discharge Planning Per psychiatry Christos Valverde MD Apr 29, 2017 15:38
[2017-04-29] MEDS: DONEPEZIL HCL 5 MG TAB PO SCH (21:00)
[2017-04-29] MEDS: ATORVASTATIN 20 MG TAB PO SCH (21:00)
[2017-04-30] MEDS: LEVOTHYROXINE SODIUM 100 MCG TAB PO SCH (05:36)
[2017-04-30 06:45] VITALS: BP 130/57; PULSE 81; RESP 18; TEMP 98.4; O2SAT 94
[2017-04-30] MEDS: LISINOPRIL 5 MG TAB PO SCH (09:13)
--- NOTE | 2017-04-30 11:06 | HHI.PYPN ---
Subjective Remarks Pt seen and discussed with staff. Pt received ativan 1mg PO last night and has been drowsy and groggy this morning, but has become alert. She states that she is confused and demands to know "'why am I here? What even is this place?" She has been cooperative with care. No SI/HI Mental Status Examination Appearance: Appropriate Consciousness: Alert Orientation: Person Motor Activity: Normal gait Speech: Unremarkable Language: Adequate Fund of Knowledge: Inadequate Attention and Concentration: Easily Distracted Memory: Impaired Mood: Irritable Affect: Irritable Thought Process & Associations: Intact Thought Content: Delusional Hallucination Type: None Delusion Type: Bizarre Suicidal Ideation: Yes Suicidal Plan: No Suicidal Intention: No Homicidal Ideation: No Homicidal Plan: No Homicidal Intention: No Insight: Poor Judgment: Poor Results Labs Test 04/29/17 11:55 Blood Urea Nitrogen 12 MG/DL Creatinine 1.19 MG/DL Random Glucose 83 MG/DL Calcium Level 9.4 MG/DL Magnesium Level 2.4 MG/DL Sodium Level 139 MEQ/L Potassium Level 4.0 MEQ/L Chloride Level 101 MEQ/L Carbon Dioxide Level 32.1 MEQ/L Anion Gap 6 MEQ/L Estimat Glomerular Filtration Rate 44 ML/MIN Date/Time Source Procedure Growth Status 04/27/17 01:15 Urine Clean Catch Urine Culture - Final 50-100,000 CFU/ML MIXED GRAM POSITIVE... Complete Vitals/IOs Vital Signs Date Time Temp Pulse Resp B/P (MAP) Pulse Ox O2 Delivery O2 Flow Rate FiO2 04/30/17 06:45 98.4 81 18 130/57 (81) 94 04/27/17 13:24 Room Air Intake and Output 04/30/17 04/30/17 05/01/17 08:00 16:00 00:00 Intake Total 0 ml Balance 0 ml Assessment & Plan Problem List: (1) Dementia in other diseases classified elsewhere with behavioral disturbance ICD Codes: F02.81 - Dementia in other diseases classified elsewhere with behavioral disturbance (2) ALZHEIMER'S DISEASE WITH LATE ONSET ICD Codes: G30.1 - ALZHEIMER'S DISEASE WITH LATE ONSET Assessment & Plan Continue current tx plan. Will lower ativan dosage to prevent oversedation. Estimated LOS: days Justification for Cont. Inpt. risk of decompensation Request HC Surrog/Guard Advoc?: Yes Jacqui Penn MD Apr 30, 2017 11:06
[2017-04-30] MEDS ORDERED: LORazepam 2 MG/ML VIAL IM PRN (12:00)
[2017-04-30] MEDS ORDERED: 1/2 NS + KCL 20 MEQ INJ 1,000 ML IV PRN (14:15)
--- NOTE | 2017-04-30 14:15 | HHI.PR ---
Subjective Remarks Follow-up loose stools and chronic kidney disease. Already had 2 loose stool today with decrease by mouth intake per nursing report denies nausea and abdominal pain. Labs pending Objective Vitals Vital Signs Date Time Temp Pulse Resp B/P (MAP) Pulse Ox O2 Delivery O2 Flow Rate FiO2 04/30/17 06:45 98.4 81 18 130/57 (81) 94 I/O 04/29/17 04/29/17 04/29/17 04/30/17 04/30/17 04/30/17 06:59 14:59 22:59 06:59 14:59 22:59 Intake Total 0 ml 240 ml 240 ml 240 ml Balance 0 ml 240 ml 240 ml 240 ml Intake Oral 0 ml 240 ml 240 ml 240 ml # Voids 1 4 2 # Bowel Movements 3 1 Result Diagram: 04/28/17 1036 04/29/17 1155 Objective Remarks GENERAL: This is a well-nourished, well-developed patient, in no apparent distress. Not dehydrated SKIN: No rashes, warm and dry CARDIOVASCULAR: Regular rate and rhythm without murmurs, gallops, or rubs. RESPIRATORY: Fair air entry bilaterally. No wheezes, rales, or rhonchi. GASTROINTESTINAL: Abdomen soft, non-tender, nondistended. Positive bowel sounds MUSCULOSKELETAL: Extremities without clubbing, cyanosis, or edema. Pedal pulses appreciated NEUROLOGICAL: Awake and alert. Moves all extremity. Normal speech.no focal neurological deficit A/P Assessment and Plan 76 years old female admitted to [facility] due to [facility] attempt, hospitalist consulted for medical management Acute hypokalemia from HCTZ and loose stool. Improved but has stool loose stool. Add Lactinex. C diff if elevated WC pending CBC today Hypertension. Stable continue lisinopril but hold Hydrochlorothiazide Hyperlipidemia. Continue Lipitor Abnormal urinalysis urine culture with contaminants discontinue Macrobid Acute on chronic kidney disease stage III. Consider IV hydration if worse. Pending labs DVT prophylaxis with ambulation Discharge Planning Per psychiatry Christos Valverde MD Apr 30, 2017 14:15
--- NOTE | 2017-04-30 15:03 | EKG ---
Date Performed: 04/28/2017 Time Performed: 15:00:42 PTAGE: 76 years EKG: Sinus rhythm NONSPECIFIC T-WAVE ABNORMALITY BORDERLINE ECG PREVIOUS TRACING : 04/27/2017 13.18 Since previous tracing, no significant change noted DOCTOR: Cory Goodwin Interpretating Date/Time 04/30/2017 15:03:26
[2017-04-30 16:58] LABS: BICARBONATE 29.3 MEQ/L (21.0-32.0); CALCIUM 9.4 MG/DL (8.5-10.1); CREATININE 0.91 MG/DL (0.50-1.00); MAGNESIUM 2.1 MG/DL (1.5-2.5)
[2017-04-30] MEDS: LACTOBACILLUS ACIDOPHILUS TAB PO SCH (17:06)
[2017-04-30 18:00] VITALS: BP 110/56; PULSE 72; RESP 17; TEMP 98.6; O2SAT 98
[2017-04-30] MEDS: DONEPEZIL HCL 5 MG TAB PO SCH (21:34)
[2017-04-30] MEDS: LORazepam 0.5 MG TAB PO PRN (21:34)
[2017-04-30] MEDS: ATORVASTATIN 20 MG TAB PO SCH (21:34)
[2017-05-01 05:00] VITALS: BP 121/57; PULSE 71; RESP 16; TEMP 98; O2SAT 95
[2017-05-01] MEDS: LEVOTHYROXINE SODIUM 100 MCG TAB PO SCH (05:39)
[2017-05-01 08:55] VITALS: BP 144/58
[2017-05-01] MEDS: LACTOBACILLUS ACIDOPHILUS TAB PO SCH ×3 (09:00→17:21)
[2017-05-01] MEDS: LISINOPRIL 5 MG TAB PO SCH (09:02)
[2017-05-01 10:41] LABS: AUTOMATED NEUTROPHIL # 5.6 TH/MM3 (1.8-7.7); BASOPHIL # 0.1 TH/MM3 (0-0.2); BASOPHIL % 0.6 % (0.0-2.0); EOSINOPHIL # 0.7 TH/MM3 (0-0.4); EOSINOPHIL % 8.2 % (0.0-4.0); HEMATOCRIT 48.1 % (35.0-46.0); HEMOGLOBIN 16.5 GM/DL (11.6-15.3); LYMPH % 17.1 % (9.0-44.0); LYMPHOCYTE # 1.5 TH/MM3 (1.0-4.8); MEAN CORPUSCULAR HEMOGLOBIN 32.5 PG (27.0-34.0); MEAN CORPUSCULAR HGB CONC 34.3 % (32.0-36.0); MEAN PLATELET VOLUME 10.3 FL (7.0-11.0); MONO % 8.8 % (0.0-8.0); MONOCYTE # 0.7 TH/MM3 (0-0.9); NEUT % 65.3 % (16.0-70.0); PLATELET COUNT 286 TH/MM3 (150-450); RED BLOOD COUNT 5.06 MIL/MM3 (4.00-5.30); RED CELL DISTRIBUTION WIDTH 13.3 % (11.6-17.2); WHITE BLOOD COUNT 8.5 TH/MM3 (4.0-11.0)
[2017-05-01] MEDS: LORazepam 0.5 MG TAB PO PRN ×2 (11:00→22:17)
[2017-05-01 11:14] LABS: BICARBONATE 31.7 MEQ/L (21.0-32.0); CALCIUM 9.5 MG/DL (8.5-10.1); CREATININE 0.88 MG/DL (0.50-1.00); MAGNESIUM 2.1 MG/DL (1.5-2.5)
--- NOTE | 2017-05-01 14:30 | HHI.PR ---
Subjective Remarks F/U ENA. Remains with poor PO. 2 formed stools today dw RN Objective Vitals Vital Signs Date Time Temp Pulse Resp B/P (MAP) Pulse Ox O2 Delivery O2 Flow Rate FiO2 05/01/17 08:55 144/58 (86) 05/01/17 05:00 98.0 71 16 121/57 (78) 95 04/30/17 18:00 98.6 72 17 110/56 (74) 98 I/O 04/30/17 04/30/17 04/30/17 05/01/17 05/01/17 05/01/17 07:00 15:00 23:00 07:00 15:00 23:00 Intake Total 0 ml 480 ml 240 ml 0 ml 300 ml Balance 0 ml 480 ml 240 ml 0 ml 300 ml Intake Oral 0 ml 480 ml 240 ml 0 ml 300 ml # Voids 2 4 2 1 # Bowel Movements 1 2 1 Result Diagram: 05/01/17 0910 05/01/17 0910 Imaging Last Impressions Head CT 04/27/17 0000 Signed Impressions: Service Date/Time: Thursday, April 27, 2017 02:36 - CONCLUSION: 1. No evidence of acute intracranial pathology. No masses are identified. Cale Doss MD Objective Remarks GENERAL: This is a well-nourished, well-developed patient, in no apparent distress. Not dehydrated SKIN: No rashes, warm and dry CARDIOVASCULAR: Regular rate and rhythm without murmurs, gallops, or rubs. RESPIRATORY: Fair air entry bilaterally. No wheezes, rales, or rhonchi. GASTROINTESTINAL: Abdomen soft, non-tender, nondistended. Positive bowel sounds MUSCULOSKELETAL: Extremities without clubbing, cyanosis, or edema. Pedal pulses appreciated NEUROLOGICAL: Awake and alert. Moves all extremity. Normal speech.no focal neurological deficit A/P Assessment and Plan 76 years old female admitted to [facility] due to [facility] attempt, hospitalist consulted for medical management Acute hypokalemia from HCTZ and loose stool. K 4.4 will order 30 meq Kcl x 1. Lactinex. C diff if elevated WC Hypertension. Stable continue lisinopril but hold Hydrochlorothiazide with poor PO Hyperlipidemia. Continue Lipitor Abnormal urinalysis urine culture with contaminants discontinue Macrobid Acute on chronic kidney disease stage III. Consider IV hydration if worse. Labs prn DVT prophylaxis with ambulation Discharge Planning Per psychiatry Christos Valverde MD May 01, 2017 14:30
[2017-05-01] MEDS ORDERED: POTASSIUM CHLORIDE 10 MEQ CONTROLLED RELEASE TAB PO ONE (15:00)
--- NOTE | 2017-05-01 16:35 | HHI.PYPN ---
Subjective Remarks Pt seen and discussed with staff. She was anxious and oppositional early in the morning (telling RN to shoot her), but calmed as day progressed and was able to enjoy visit and completed hygiene activities. She has also been more cooperative with staff. SHe reports that she is feeling good today and denies pain or discomfort.No SI/HI Mental Status Examination Appearance: Appropriate Consciousness: Alert Orientation: Person Motor Activity: Normal gait Speech: Unremarkable Language: Adequate Fund of Knowledge: Inadequate Attention and Concentration: Easily Distracted Memory: Impaired Mood: Other (calm) Affect: Appropriate Thought Process & Associations: Linear Thought Content: Delusional Hallucination Type: None Delusion Type: Bizarre Suicidal Ideation: No Suicidal Plan: No Suicidal Intention: No Homicidal Ideation: No Homicidal Plan: No Homicidal Intention: No Insight: Poor Judgment: Poor Results Labs Test 05/01/17 09:10 White Blood Count 8.5 TH/MM3 Red Blood Count 5.06 MIL/MM3 Hemoglobin 16.5 GM/DL Hematocrit 48.1 % Mean Corpuscular Volume 95.0 FL Mean Corpuscular Hemoglobin 32.5 PG Mean Corpuscular Hemoglobin Concent 34.3 % Red Cell Distribution Width 13.3 % Platelet Count 286 TH/MM3 Mean Platelet Volume 10.3 FL Neutrophils (%) (Auto) 65.3 % Lymphocytes (%) (Auto) 17.1 % Monocytes (%) (Auto) 8.8 % Eosinophils (%) (Auto) 8.2 % Basophils (%) (Auto) 0.6 % Neutrophils # (Auto) 5.6 TH/MM3 Lymphocytes # (Auto) 1.5 TH/MM3 Monocytes # (Auto) 0.7 TH/MM3 Eosinophils # (Auto) 0.7 TH/MM3 Basophils # (Auto) 0.1 TH/MM3 CBC Comment DIFF FINAL Differential Comment Blood Urea Nitrogen 14 MG/DL Creatinine 0.88 MG/DL Random Glucose 113 MG/DL Calcium Level 9.5 MG/DL Magnesium Level 2.1 MG/DL Sodium Level 136 MEQ/L Potassium Level 3.4 MEQ/L Chloride Level 95 MEQ/L Carbon Dioxide Level 31.7 MEQ/L Anion Gap 9 MEQ/L Estimat Glomerular Filtration Rate 63 ML/MIN Date/Time Source Procedure Growth Status 04/27/17 01:15 Urine Clean Catch Urine Culture - Final 50-100,000 CFU/ML MIXED GRAM POSITIVE... Complete Vitals/IOs Vital Signs Date Time Temp Pulse Resp B/P (MAP) Pulse Ox O2 Delivery O2 Flow Rate FiO2 05/01/17 08:55 144/58 (86) 05/01/17 05:00 98.0 71 16 95 04/27/17 13:24 Room Air Intake and Output 05/01/17 05/01/17 05/02/17 08:00 16:00 00:00 Intake Total 120 ml 300 ml Balance 120 ml 300 ml Assessment & Plan Problem List: (1) Dementia in other diseases classified elsewhere with behavioral disturbance ICD Codes: F02.81 - Dementia in other diseases classified elsewhere with behavioral disturbance (2) ALZHEIMER'S DISEASE WITH LATE ONSET ICD Codes: G30.1 - ALZHEIMER'S DISEASE WITH LATE ONSET Assessment & Plan Pt improving. Continue current tx plan. Estimated LOS: days Justification for Cont. Inpt. risk of decompensation Request HC Surrog/Guard Advoc?: Yes Jacqui Penn MD May 01, 2017 16:35
[2017-05-01 17:00] VITALS: BP 110/56; PULSE 72; RESP 17; TEMP 98.6; O2SAT 98
[2017-05-01 20:34] VITALS: BP 114/56; PULSE 89; RESP 16; TEMP 97.2; O2SAT 92
[2017-05-01] MEDS: ATORVASTATIN 20 MG TAB PO SCH (21:00)
[2017-05-01] MEDS: DONEPEZIL HCL 5 MG TAB PO SCH (21:00)
--- NOTE | 2017-05-01 21:14 | RADRPT ---
EXAM DATE/TIME: 05/01/2017 20:59 [facility] COMPARISON: No previous studies available for comparison. INDICATIONS : Left knee pain post fall. MEDICAL HISTORY : Hypertension. Alzheimer's. SURGICAL HISTORY : None. ENCOUNTER: Initial ACUITY: 4 - 6 days PAIN SCORE: 4/10 LOCATION: Left knee. FINDINGS: Four view examination of the left knee demonstrates no evidence of fracture or dislocation. Bony min eralization is normal. The articular surfaces are intact. The suprapatellar soft tissues have a nor mal configuration. No perceptible joint effusion. CONCLUSION: Intact left knee. Silas Marr MD on May 01, 2017 at 21:11 Board Certified Radiologist. This report was verified electronically.
--- NOTE | 2017-05-01 21:20 | RADRPT ---
EXAM DATE/TIME: 05/01/2017 20:57 [facility] COMPARISON: No previous studies available for comparison. INDICATIONS : Right knee pain post fall. MEDICAL HISTORY : Hypertension. Alzheimer's. SURGICAL HISTORY : None. ENCOUNTER: Initial ACUITY: 4 - 6 days PAIN SCORE: 4/10 LOCATION: Right knee. FINDINGS: Four view examination of the right knee demonstrates no evidence of fracture or dislocation. Bony mi neralization is normal. The articular surfaces are intact. The suprapatellar soft tissues have a no rmal configuration. CONCLUSION: No acute abnormality of the right knee. Silas Marr MD on May 01, 2017 at 21:17 Board Certified Radiologist. This report was verified electronically.
[2017-05-01 22:00] VITALS: BP 111/56; PULSE 90; RESP 16; O2SAT 94
[2017-05-02 05:30] VITALS: BP 144/66; PULSE 79; RESP 18; TEMP 98; O2SAT 96
[2017-05-02] MEDS: LEVOTHYROXINE SODIUM 100 MCG TAB PO SCH (06:36)
[2017-05-02] MEDS: LISINOPRIL 5 MG TAB PO SCH (08:24)
[2017-05-02] MEDS: LORazepam 0.5 MG TAB PO PRN (08:24)
[2017-05-02] MEDS: LACTOBACILLUS ACIDOPHILUS TAB PO SCH ×3 (08:24→17:13)
--- NOTE | 2017-05-02 12:45 | HHI.PR ---
Subjective Remarks Follow-up kidney disease, hypokalemia and diarrhea. Patient has no complaints. Improved oral intake discussed with RN. One formed BM today. Apparently had a fall yesterday bilateral knee x-ray unremarkable. Patient denies pain. Objective Vitals Vital Signs Date Time Temp Pulse Resp B/P (MAP) Pulse Ox O2 Delivery O2 Flow Rate FiO2 05/02/17 05:30 98.0 79 18 144/66 (92) 96 05/01/17 22:00 90 16 111/56 (74) 94 05/01/17 20:34 97.2 89 16 114/56 (75) 92 05/01/17 17:00 98.6 72 17 110/56 (74) 98 I/O 05/01/17 05/01/17 05/01/17 05/02/17 05/02/17 05/02/17 07:00 15:00 23:00 07:00 15:00 23:00 Intake Total 0 ml 420 ml 960 ml 240 ml 240 ml Balance 0 ml 420 ml 960 ml 240 ml 240 ml Intake Oral 0 ml 420 ml 960 ml 240 ml 240 ml # Voids 1 # Bowel Movements 1 Result Diagram: 05/01/17 0910 05/01/17 0910 Imaging Last Impressions Knee X-Ray 05/01/17 0000 Signed Impressions: Service Date/Time: Monday, May 01, 2017 20:57 - CONCLUSION: No acute abnormality of the right knee. Silas Marr MD Head CT 04/27/17 0000 Signed Impressions: Service Date/Time: Thursday, April 27, 2017 02:36 - CONCLUSION: 1. No evidence of acute intracranial pathology. No masses are identified. Cale Doss MD Objective Remarks GENERAL: This is a well-nourished, well-developed patient, in no apparent distress. Not dehydrated SKIN: No rashes, warm and dry CARDIOVASCULAR: Regular rate and rhythm without murmurs, gallops, or rubs. RESPIRATORY: Fair air entry bilaterally. No wheezes, rales, or rhonchi. GASTROINTESTINAL: Abdomen soft, non-tender, nondistended. Positive bowel sounds MUSCULOSKELETAL: Extremities without clubbing, cyanosis, or edema. Pedal pulses appreciated. Bilateral knees with no swelling or tenderness full Range of movement. NEUROLOGICAL: Awake and alert. Moves all extremity. Normal speech.no focal neurological deficit A/P Assessment and Plan 76 years old female admitted to [facility] due to suicide attempt, hospitalist consulted for medical management Acute hypokalemia from HCTZ and loose stool. Improved with replacement. Lactinex. C diff if elevated WC Hypertension. Stable continue lisinopril but hold Hydrochlorothiazide with poor PO Hyperlipidemia. Continue Lipitor Abnormal urinalysis urine culture with contaminants discontinue Macrobid Acute on chronic kidney disease stage III. Improved , Consider IV hydration if worse. Labs prn Fall. No apparent injury. Fall precautions. Physical therapy evaluation DVT prophylaxis with ambulation Medically stable, we'll sign off Discharge Planning Per psychiatry Christos Valverde MD May 02, 2017 12:45
[2017-05-02] MEDS ORDERED: ATOR20TA15 PO (14:48)
--- NOTE | 2017-05-02 15:56 | HHI.PYPN ---
Subjective Remarks Patient seen in dayroom with floor staff, chart review, patient calm pleasant with me denies suicidality homicidality voices or visions. States she is ready to go home. But she still needs medical clearance. For now to we will discontinue the various Ativan orders observe patient is drug free as possible Review of Systems Except as stated in HPI: all other systems reviewed are Neg Mental Status Examination Appearance: Appropriate Consciousness: Alert Orientation: Person Motor Activity: Normal gait Speech: Unremarkable Language: Adequate Fund of Knowledge: Inadequate Attention and Concentration: Easily Distracted Memory: Impaired Mood: Other (calm) Affect: Appropriate Thought Process & Associations: Linear Thought Content: Delusional Hallucination Type: None Delusion Type: Bizarre Suicidal Ideation: No Suicidal Plan: No Suicidal Intention: No Homicidal Ideation: No Homicidal Plan: No Homicidal Intention: No Insight: Poor Judgment: Poor Results Labs Date/Time Source Procedure Growth Status 04/27/17 01:15 Urine Clean Catch Urine Culture - Final 50-100,000 CFU/ML MIXED GRAM POSITIVE... Complete Vitals/IOs Vital Signs Date Time Temp Pulse Resp B/P (MAP) Pulse Ox O2 Delivery O2 Flow Rate FiO2 05/02/17 05:30 98.0 79 18 144/66 (92) 96 Intake and Output 05/02/17 05/02/17 05/02/17 07:59 15:59 23:59 Intake Total 480 ml 120 ml Balance 480 ml 120 ml Assessment & Plan Problem List: (1) Dementia in other diseases classified elsewhere with behavioral disturbance ICD Codes: F02.81 - Dementia in other diseases classified elsewhere with behavioral disturbance (2) ALZHEIMER'S DISEASE WITH LATE ONSET ICD Codes: G30.1 - ALZHEIMER'S DISEASE WITH LATE ONSET Assessment & Plan Estimated LOS: days patient calm cooperative fairly well oriented at this time. For now will continue treatment no change except discontinue the Ativan orders Justification for Cont. Inpt. At this time patient would decompensated placed a lower level of care Discharge Planning Possible return to her own home Request HC Surrog/Guard Advoc?: Yes Silas Russo MD May 02, 2017 15:56
[2017-05-02 17:43] VITALS: BP 131/65; PULSE 79; RESP 18; TEMP 97.9; O2SAT 96
[2017-05-02] MEDS: ATORVASTATIN 20 MG TAB PO SCH (21:47)
[2017-05-02] MEDS: DONEPEZIL HCL 5 MG TAB PO SCH (21:47)
[2017-05-03 06:00] VITALS: BP 149/67; PULSE 90; RESP 17; TEMP 97.9; O2SAT 97
[2017-05-03] MEDS: LEVOTHYROXINE SODIUM 100 MCG TAB PO SCH (06:20)
[2017-05-03] MEDS: LACTOBACILLUS ACIDOPHILUS TAB PO SCH ×2 (08:26→12:02)
[2017-05-03] MEDS: LISINOPRIL 5 MG TAB PO SCH (08:26)
--- NOTE | 2017-05-03 10:02 | PD.TTN ---
Patient Problems 1. Discharge planning 2. Medication compliance 3. Knowledge deficit 4. Lack of coping skills Progress Toward Goals Provider Present: Dr. Katelyn Russo Provider Input: Patient is cooperative and pleasant but does continue to have disorganization and confusion. Patient is progressing in treatment and is currently denying suicidial ideation, auditory and visual hallucinations. Nurse(s) Input: Patient is compliant with medications and is attending ADLs. Patient is observed to be pleasant in dayroom and is easily redirected. Psychiatric Counselors Present: JEREMIAH Almodovar Psych Therapist Input: Patient was residing at [facility] and upon stablization, patient will be able to return back to facility Regi Storey May 03, 2017 10:02
[2017-05-03] MEDS ORDERED: VENTAER INH (11:58)
[2017-05-03] MEDS ORDERED: DONE10TA7 PO (11:58)
[2017-05-03] MEDS ORDERED: LACT PO (11:58)
[2017-05-03] MEDS ORDERED: LEVO100T5 PO (11:58)
[2017-05-03] MEDS ORDERED: HYDR12.57 PO (11:58)
--- NOTE | 2017-05-03 12:06 | HHI.DS ---
Psychiatry Discharge Summary Inpatient Psychiatric care?: Yes Advance Directive: No Reason Not Provided: states doesnt have one. Mental Health AdvanceDirective: No Health Care Proxy: No Admission Admission Date Apr 27, 2017 at 12:00 Admission Diagnosis: (1) ALZHEIMER'S DISEASE WITH LATE ONSET ICD Code: G30.1 - ALZHEIMER'S DISEASE WITH LATE ONSET (2) Alzheimer's dementia with behavioral disturbance ICD Code: G30.9 - Alzheimer's disease, unspecified; F02.81 - Dementia in other diseases classified elsewhere with behavioral disturbance Brief History This is a 76-year-old female with a history of Alzheimer's dementia, brought in under a [place] act initiated by law enforcement. According to the [place] act, the patient was disoriented when she was at her residence, [facility] one of the staff there indicated the patient wanted to throw herself from the sixth floor of the building. The patient appeared very confused and upset. The staff member indicated the patient was not taking her medicines as prescribed and continuously indicated that she wanted to and to find her . (The patient told this physician her was laying sod at their manufactured home. The patient's daughter told this physician the patient's is from her while he gets treatment for opiate abuse.) The employment law attorney also noted that the patient did not appear to remember things and indeed said that she just wanted to . Upon interview with this physician, the patient was initially attempting to take a bath on the floor of her emergency department room. She is disoriented to time, date and situation as well as place. She was oriented only to person. She denied making statements that she wanted to kill herself but certainly was unable to provide accurate information about other items in her history. When this physician spoke with the patient's daughter, who resides in [place] and has power of employment law attorney, a daughter indicated her mother was indeed confused, suffering from dementia and getting worse. Tobacco Use In Past 30 Days: No Tobacco Past 30 Days Alcohol Use: 4 or More Times Per Week Hospital Course Patient's hospital course was uneventful. Patient showed calming of her behaviors decrease in her psychotic features, she has been eating well sleeping well and socializing on the unit. She denies suicidality homicidality voices or visions. Says she does miss her . At this time patient met maximum benefit of this hospitalization thus patient be discharged to her prior placement. Rx 1 month to follow-up with her PCP Results Blood Pressure 149 / 67 Vital Signs Date Time Temp Pulse Resp B/P (MAP) Pulse Ox O2 Delivery O2 Flow Rate FiO2 05/03/17 06:00 97.9 90 17 149/67 (94) 97 Laboratory Tests Test 04/30/17 15:47 05/01/17 09:10 Sodium Level 135 MEQ/L (136-145) Estimat Glomerular Filtration Rate 60 ML/MIN (>89) 63 ML/MIN (>89) Hemoglobin 16.5 GM/DL (11.6-15.3) Hematocrit 48.1 % (35.0-46.0) Monocytes (%) (Auto) 8.8 % (0.0-8.0) Eosinophils (%) (Auto) 8.2 % (0.0-4.0) Eosinophils # (Auto) 0.7 TH/MM3 (0-0.4) Random Glucose 113 MG/DL (74-106) Potassium Level 3.4 MEQ/L (3.5-5.1) Chloride Level 95 MEQ/L (98-107) Laboratory Results Test 04/28/17 10:36 Cholesterol Level 238 MG/DL (120-200) HDL Cholesterol 63.5 MG/DL (40.0-60.0) Hemoglobin A1c 5.3 % (4.3-6.0) LDL Cholesterol 149 MG/DL (0-99) Triglycerides Level 129 MG/DL (42-150) Summary of Procedures None done Imaging Last Impressions Knee X-Ray 05/01/17 0000 Signed Impressions: Service Date/Time: Monday, May 01, 2017 20:57 - CONCLUSION: No acute abnormality of the right knee. Silas Marr MD Head CT 04/27/17 0000 Signed Impressions: Service Date/Time: Thursday, April 27, 2017 02:36 - CONCLUSION: 1. No evidence of acute intracranial pathology. No masses are identified. Cale Doss MD Pending results at discharge: No Medications # of Antipsychotic meds at D/C: 0 Approp Antipsych med options 1 - Minimum of three failed multiple trials of monotherapy. 2 - Documented plan to taper to monotherapy due to previous use of multiple meds OR cross-taper in progress at D/C. 3 - Documentation of augmentation of Clozapine. 4 - Justification other than those listed in allowable values 1-3, document here : Discharge Discharge Date: May 03, 2017 Discharge Diagnosis: (1) ALZHEIMER'S DISEASE WITH LATE ONSET Diagnosis: Principal ICD Code: G30.1 - ALZHEIMER'S DISEASE WITH LATE ONSET (2) Dementia in other diseases classified elsewhere with behavioral disturbance Diagnosis: Principal ICD Code: F02.81 - Dementia in other diseases classified elsewhere with behavioral disturbance Pt Condition on Discharge: Stable Discharge Disposition: Discharge Home Discharge Instructions Diet Instructions: As Tolerated, No Restrictions Activities you can perform: Regular-No Restrictions Scheduled Appointment: follow-up PCP Discharge Time > 30 minutes Mental Status Examination Appearance: Appropriate Consciousness: Alert Orientation: Person Motor Activity: Normal gait Speech: Unremarkable Language: Adequate Fund of Knowledge: Inadequate Attention and Concentration: Easily Distracted Memory: Impaired Mood: Other (calm) Affect: Appropriate Thought Process & Associations: Linear Thought Content: Delusional Hallucination Type: None Delusion Type: Bizarre Suicidal Ideation: No Suicidal Plan: No Suicidal Intention: No Homicidal Ideation: No Homicidal Plan: No Homicidal Intention: No Insight: Poor Judgment: Poor Discharge/Advance Care Plan Health Problems: (1) Dementia in other diseases classified elsewhere with behavioral disturbance (2) ALZHEIMER'S DISEASE WITH LATE ONSET Goals to promote your health * To prevent worsening of your condition and complications * To maintain your health at the optimal level Directions to meet your goals Take your medications as prescribed Follow your dietary instruction Follow activity as directed Keep your appointments as scheduled Take your immunizations and boosters as scheduled If your symptoms worsen call your PCP, if no PCP go to Urgent Care Center or Emergency Room For 08/11 questions related to your inpatient stay or results of tests pending at discharge, please contact Dr. Silas Russo at Smoking is Dangerous to Your Health. Avoid second hand smoking Silas Russo MD May 03, 2017 12:06
== END 2017-05-03 13:35 | disposition home or self-care (01) | DRG 57 ==
LOC: NEPD 23:35 → NEDA 04-27 12:00 → H250 04-27 14:30
PROVIDERS: ADMIT Psychiatry & Neurology Psychiatry; ATTEND Psychiatry & Neurology Psychiatry
DX: G30.1 Alzheimer's disease with late onset (principal); N17.9 Acute kidney failure, unspecified; F02.81 Dementia in other diseases classified elsewhere, unspecified severity, with behavioral disturbance; R45.851 Suicidal ideations; K70.9 Alcoholic liver disease, unspecified; N18.3 Chronic kidney disease, stage 3 (moderate); N39.0 Urinary tract infection, site not specified; F22 Delusional disorders; F41.9 Anxiety disorder, unspecified; I12.9 Hypertensive chronic kidney disease with stage 1 through stage 4 chronic kidney disease, or unspecified chronic kidney disease; E78.5 Hyperlipidemia, unspecified; I25.10 Atherosclerotic heart disease of native coronary artery without angina pectoris; E03.9 Hypothyroidism, unspecified; J45.909 Unspecified asthma, uncomplicated; E87.6 Hypokalemia; T50.2X5A Adverse effect of carbonic-anhydrase inhibitors, benzothiadiazides and other diuretics, initial encounter; R19.7 Diarrhea, unspecified; F10.20 Alcohol dependence, uncomplicated; Y90.0 Blood alcohol level of less than 20 mg/100 ml; Z88.1 Allergy status to other antibiotic agents
CPT/HCPCS: 70450; 73564; 80048; 80053; 80061; 80307; 81001; 82306; 82607; 83036; 83735; 84132; 84443; 85025; 87086; 93005; 96372; J1200; J1630; J2060

== ENCOUNTER 2017-05-05 00:45 | Inpatient (IN) | payer OTHER, MEDICARE ==
[~2017-05-05] VITALS: Ht 152.4 cm; Wt 62.9 kg
[~2017-05-05 00:45] MED LIST: ATOR20TA15 PO; BENA5TAB PO; DONE10TA7 PO; HYDR12.57 PO; LACT PO; LEVO100T5 PO; VENTAER INH
[2017-05-05 01:01] VITALS: BP 174/88; PULSE 90; RESP 18; TEMP 98; O2SAT 96
[2017-05-05 01:47] LABS: AUTOMATED NEUTROPHIL # 6.2 TH/MM3 (1.8-7.7); BASOPHIL # 0.1 TH/MM3 (0-0.2); EOSINOPHIL # 0.3 TH/MM3 (0-0.4); EOSINOPHIL % 2.9 % (0.0-4.0); HEMATOCRIT 47.4 % (35.0-46.0); HEMOGLOBIN 15.9 GM/DL (11.6-15.3); LYMPHOCYTE # 3.7 TH/MM3 (1.0-4.8); MEAN CELL VOLUME 94.4 FL (80.0-100.0); MEAN CORPUSCULAR HEMOGLOBIN 31.7 PG (27.0-34.0); MEAN CORPUSCULAR HGB CONC 33.6 % (32.0-36.0); MEAN PLATELET VOLUME 9.9 FL (7.0-11.0); MONOCYTE # 0.9 TH/MM3 (0-0.9); NEUT % 55.1 % (16.0-70.0); PLATELET COUNT 330 TH/MM3 (150-450); RED BLOOD COUNT 5.02 MIL/MM3 (4.00-5.30); RED CELL DISTRIBUTION WIDTH 13.6 % (11.6-17.2); WHITE BLOOD COUNT 11.3 TH/MM3 (4.0-11.0)
--- NOTE | 2017-05-05 01:49 | PD ---
HPI Chief Complaint: Psychiatric Symptoms Time Seen by Provider: 01:01 Travel History International Travel<30 days: No Contact w/Intl Traveler<30days: No Traveled to known affect area: No History of Present Illness HPI 76-year-old white female presents to emergency department under [facility] by PD. The patient initially was transferred to [facility] but was then deferred to [facility] because there outside their capacity to care for this patient. The patient allegedly had made statements to staff that she wanted to jump out of a window and . She also stated that she had made a statement that she should take a gun out and ended it. The patient states that she was upset with the staff. She denies any true suicidal or homicidal ideation. No toxic ingestions. This is a patient who had just been seen in the ER under [facility] earlier this month. PFSH Past Medical History Alzheimer's Disease: Yes Asthma: Yes Blood Disorders: No Anxiety: No Depression: No Cancer: Yes Cardiovascular Problems: Yes High Cholesterol: Yes Chemotherapy: Yes Cerebrovascular Accident: No Endocrine: Yes (removal of thyroid) Gastrointestinal Disorders: Yes (colon cancer (sigmoid)) Genitourinary: No Hiatal Hernia: Yes Hypertension: Yes Immune Disorder: No Musculoskeletal: No Neurologic: Yes (dementia) Psychiatric: No Respiratory: Yes Radiation Therapy: Yes Seizures: No Thyroid Disease: Yes ?: Not Past Surgical History Abdominal Surgery: Yes (colon resection for cancer) Endocrine Surgery: Yes (throidectomy) Oral Surgery: Yes Thoracic Surgery: Yes Other Surgery: Yes (thyroidectomy, colon resection) Social History Alcohol Use: Yes Tobacco Use: No Substance Use: No Allergies-Medications (Allergen,Severity, Reaction): Coded Allergies: erythromycin base (Unverified Allergy, Severe, Hives, 04/27/17) Reported Meds & Prescriptions Reported Meds & Active Scripts Active Macrobid (Nitrofurantoin Monohydrate Macrocrystals) 100 Mg Capsule 100 Mg PO BID 10 Days Acidophilus/l-Sporogenes (Lactobacillus Acidophilus) 35 Million Cell-25 Million Cell Tab 1 Tab PO TID Ventolin Hfa 18 GM Inh (Albuterol Sulfate) 90 Mcg/Act Aer 2 Puff INH Q4H PRN Levothyroxine (Levothyroxine Sodium) 100 Mcg Tab 100 Mcg PO DAILY Hydrochlorothiazide 12.5 Mg Cap 12.5 Mg PO DAILY Donepezil 10 Mg Tab 10 Mg PO HS Atorvastatin (Atorvastatin Calcium) 20 Mg Tab 20 Mg PO HS Reported Benazepril (Benazepril HCl) 5 Mg Tab 5 Mg PO DAILY Review of Systems General / Constitutional: No: Fever Eyes: No: Visual changes HENT: No: Headaches Cardiovascular: No: Chest Pain or Discomfort Respiratory: No: Shortness of Breath Gastrointestinal: No: Abdominal Pain Genitourinary: No: Dysuria Musculoskeletal: No: Pain Skin: No Rash Neurologic: No: Weakness Psychiatric: Positive: Mood Disorder, No: Anxiety, Depression, Suicidal Ideations, Disorder of Thought, Substance Abuse, Homicidal Ideation Endocrine: No: Polydipsia Hematologic/Lymphatic: No: Easy Bruising Physical Exam Narrative GENERAL: Well-nourished, well-developed patient. SKIN: Warm and dry. HEAD: Normocephalic and atraumatic. EYES: No scleral icterus. No injection or drainage. ENT: No nasal drainage noted. Mucous membranes pink. Airway patent. NECK: Supple, trachea midline. Moves head freely without obvious discomfort. CARDIOVASCULAR: Regular rate and rhythm without murmurs, gallops, or rubs. RESPIRATORY: Breath sounds equal bilaterally. No accessory muscle use. GASTROINTESTINAL: Abdomen soft, non-tender, nondistended. EXTREMITIES: No cyanosis or edema. BACK: Nontender without obvious deformity. No CVA tenderness. NEURO: Patient is alert and oriented. no sensorimotor deficits. Nonfocal. Normal speech. PSYCH: No delusions. No auditory or visual hallucinations. Data Data Last Documented VS Vital Signs Date Time Temp Pulse Resp B/P (MAP) Pulse Ox O2 Delivery O2 Flow Rate FiO2 05/05/17 01:01 98.0 90 18 174/88 (116) 96 Orders Orders Complete Blood Count With Diff (05/05/17 01:22) Comprehensive Metabolic Panel (05/05/17 01:22) Thyroid Stimulating Hormone (05/05/17 01:22) Urinalysis - C+S If Indicated (05/05/17:22) Psych Screen (05/05/17 01:22) Drug Screen, Random Urine (05/05/17 01:22) Alcohol (Ethanol) (05/05/17 01:22) Salicylates (Aspirin) (05/05/17:22) Tylenol (Acetaminophen) (05/05/17 01:22) Urine Culture (05/05/17 01:35) Nitrofurantoin Monohyd Macrocr (Macrobid (05/05/17 03:45) Labs Laboratory Tests Test 05/05/17 01:35 White Blood Count 11.3 TH/MM3 Red Blood Count 5.02 MIL/MM3 Hemoglobin 15.9 GM/DL Hematocrit 47.4 % Mean Corpuscular Volume 94.4 FL Mean Corpuscular Hemoglobin 31.7 PG Mean Corpuscular Hemoglobin Concent 33.6 % Red Cell Distribution Width 13.6 % Platelet Count 330 TH/MM3 Mean Platelet Volume 9.9 FL Neutrophils (%) (Auto) 55.1 % Lymphocytes (%) (Auto) 33.0 % Monocytes (%) (Auto) 8.0 % Eosinophils (%) (Auto) 2.9 % Basophils (%) (Auto) 1.0 % Neutrophils # (Auto) 6.2 TH/MM3 Lymphocytes # (Auto) 3.7 TH/MM3 Monocytes # (Auto) 0.9 TH/MM3 Eosinophils # (Auto) 0.3 TH/MM3 Basophils # (Auto) 0.1 TH/MM3 CBC Comment DIFF FINAL Differential Comment Urine Color YELLOW Urine Turbidity HAZY Urine pH 5.0 Urine Specific [place] 1.019 Urine Protein TRACE mg/dL Urine Glucose (UA) NEG mg/dL Urine Ketones NEG mg/dL Urine Occult Blood TRACE Urine Nitrite NEG Urine Bilirubin NEG Urine Urobilinogen LESS THAN 2.0 MG/DL Urine Leukocyte Esterase LARGE Urine RBC 12 /hpf Urine WBC /hpf Urine Squamous Epithelial Cells 6 /hpf Urine Transitional Epithelial Cells <1 /hpf Urine Bacteria RARE /hpf Urine Hyaline Casts 3 /lpf Urine Mucus FEW /lpf Microscopic Urinalysis Comment CULTURE INDICATED Blood Urea Nitrogen 13 MG/DL Creatinine 0.76 MG/DL Random Glucose 93 MG/DL Total Protein 7.8 GM/DL Albumin 3.6 GM/DL Calcium Level 9.4 MG/DL Alkaline Phosphatase 79 U/L Aspartate Amino Transf (AST/SGOT) 38 U/L Alanine Aminotransferase (ALT/SGPT) 29 U/L Total Bilirubin 0.7 MG/DL Sodium Level 138 MEQ/L Potassium Level 4.5 MEQ/L Chloride Level 99 MEQ/L Carbon Dioxide Level 32.6 MEQ/L Anion Gap 6 MEQ/L Estimat Glomerular Filtration Rate 74 ML/MIN Thyroid Stimulating Hormone 3rd Gen 1.390 uIU/ML Salicylates Level LESS THAN 1.7 MG/DL Urine Opiates Screen NEG Acetaminophen Level LESS THAN 2.0 MCG/ML Urine Barbiturates Screen NEG Urine Amphetamines Screen NEG Urine Benzodiazepines Screen NEG Urine Cocaine Screen NEG Urine Cannabinoids Screen NEG Ethyl Alcohol Level LESS THAN 3 MG/DL MDM Medical Decision Making Medical Screen Exam Complete: Yes Emergency Medical Condition: Yes Medical Record Reviewed: Yes Interpretation(s) Laboratory Tests Test 05/05/17 01:35 White Blood Count 11.3 TH/MM3 Red Blood Count 5.02 MIL/MM3 Hemoglobin 15.9 GM/DL Hematocrit 47.4 % Mean Corpuscular Volume 94.4 FL Mean Corpuscular Hemoglobin 31.7 PG Mean Corpuscular Hemoglobin Concent 33.6 % Red Cell Distribution Width 13.6 % Platelet Count 330 TH/MM3 Mean Platelet Volume 9.9 FL Neutrophils (%) (Auto) 55.1 % Lymphocytes (%) (Auto) 33.0 % Monocytes (%) (Auto) 8.0 % Eosinophils (%) (Auto) 2.9 % Basophils (%) (Auto) 1.0 % Neutrophils # (Auto) 6.2 TH/MM3 Lymphocytes # (Auto) 3.7 TH/MM3 Monocytes # (Auto) 0.9 TH/MM3 Eosinophils # (Auto) 0.3 TH/MM3 Basophils # (Auto) 0.1 TH/MM3 CBC Comment DIFF FINAL Differential Comment Urine Color YELLOW Urine Turbidity HAZY Urine pH 5.0 Urine Specific [place] 1.019 Urine Protein TRACE mg/dL Urine Glucose (UA) NEG mg/dL Urine Ketones NEG mg/dL Urine Occult Blood TRACE Urine Nitrite NEG Urine Bilirubin NEG Urine Urobilinogen LESS THAN 2.0 MG/DL Urine Leukocyte Esterase LARGE Urine RBC 12 /hpf Urine WBC /hpf Urine Squamous Epithelial Cells 6 /hpf Urine Transitional Epithelial Cells <1 /hpf Urine Bacteria RARE /hpf Urine Hyaline Casts 3 /lpf Urine Mucus FEW /lpf Microscopic Urinalysis Comment CULTURE INDICATED Blood Urea Nitrogen 13 MG/DL Creatinine 0.76 MG/DL Random Glucose 93 MG/DL Total Protein 7.8 GM/DL Albumin 3.6 GM/DL Calcium Level 9.4 MG/DL Alkaline Phosphatase 79 U/L Aspartate Amino Transf (AST/SGOT) 38 U/L Alanine Aminotransferase (ALT/SGPT) 29 U/L Total Bilirubin 0.7 MG/DL Sodium Level 138 MEQ/L Potassium Level 4.5 MEQ/L Chloride Level 99 MEQ/L Carbon Dioxide Level 32.6 MEQ/L Anion Gap 6 MEQ/L Estimat Glomerular Filtration Rate 74 ML/MIN Thyroid Stimulating Hormone 3rd Gen 1.390 uIU/ML Salicylates Level LESS THAN 1.7 MG/DL Urine Opiates Screen NEG Acetaminophen Level LESS THAN 2.0 MCG/ML Urine Barbiturates Screen NEG Urine Amphetamines Screen NEG Urine Benzodiazepines Screen NEG Urine Cocaine Screen NEG Urine Cannabinoids Screen NEG Ethyl Alcohol Level LESS THAN 3 MG/DL Differential Diagnosis MDM: High Differential diagnoses: Schizophrenia, schizoaffective disorder, bipolar, anxiety, depression, adjustment reaction, mood disorder NOS, ODD, depressive disorder NOS, dementia, dementia with agitation, psychosis NOS, substance induced mood disorder, DMDD, Asperger syndrome, infection,electrolyte abnormality, malingering. Narrative Course Mental health screening discussed with the patient. Psychiatric screen ordered. The patient is been medically clear. The patient has a UTI. She is given Macrobid 100 mg by mouth and a prescription for 10 days. This is medical clearance for psychiatric admission, UTI Diagnosis Primary Impression: Medical clearance for psychiatric admission Additional Impressions: Alzheimer's dementia with behavioral disturbance Qualified Codes: G30.9 - Alzheimer's disease, unspecified; F02.81 - Dementia in other diseases classified elsewhere with behavioral disturbance UTI (urinary tract infection) Qualified Codes: N30.00 - Acute cystitis without hematuria Scripts Nitrofurantoin Monohydrate Macrocrystals (Macrobid) 100 Mg Capsule 100 MG PO BID for Infection for 10 Days, #20 CAP 0 Refills Prov: Jean Pierre Hawthorne MD 05/05/17 Condition: Stable Raymundo Santos May 05, 2017 01:48
[2017-05-05 02:03] LABS: BACTERIA, URINE RARE /hpf; BILIRUBIN, URINE NEG (NEG); BLOOD, URINE TRACE (NEG); GLUCOSE,URINE NEG (NEG); HYALINE CAST, URINE 3 /lpf (RARE); KETONE, URINE NEG (NEG); MUCUS URINE FEW /lpf (OCC); NITRITE,URINE NEG (NEG); SQUAMOUS EPITHELIAL CELL URINE 6 /hpf (0-5); TRANSITIONAL EPI CELLS, URINE <1 /hpf; URINE COLOR YELLOW (YELLW/STRAW); URINE LEUKOCYTE ESTERASE LARGE (NEG)
[2017-05-05 02:13] LABS: ALBUMIN 3.6 GM/DL (3.4-5.0); ALT (GPT) 29 U/L (10-53); AST (GOT) 38 U/L (15-37); BICARBONATE 32.6 MEQ/L (21.0-32.0); BLOOD UREA NITROGEN 13 MG/DL (7-18); CALCIUM 9.4 MG/DL (8.5-10.1); CHLORIDE 99 MEQ/L (98-107); CREATININE 0.76 MG/DL (0.50-1.00); GLOMERULAR FILTRATION RATE 74 ML/MIN (>89); GLUCOSE,RANDOM 93 MG/DL (74-106); SODIUM (NA) 138 MEQ/L (136-145)
[2017-05-05 02:20] LABS: ACETAMINOPHEN LESS THAN 2.0 MCG/ML (10.0-30.0); ALKALINE PHOSPHATASE 79 U/L (45-117); TOTAL BILIRUBIN ADULT 0.7 MG/DL (0.2-1.0); TOTAL PROTEIN 7.8 GM/DL (6.4-8.2)
[2017-05-05] MEDS ORDERED: MACR100C2 PO (03:43)
[2017-05-05] MEDS ORDERED: NITROFURANTOIN MONOHYD MACROCR 100 MG CAP PO ONE (03:45)
[2017-05-05 07:30] VITALS: BP 180/78; PULSE 67; RESP 18; O2SAT 97
[2017-05-05 10:12] VITALS: BP 158/70; PULSE 60; RESP 17; O2SAT 97
[2017-05-05] MEDS ORDERED: LORazepam 0.5 MG TAB PO PRN (12:30)
[2017-05-05] MEDS ORDERED: ALUMINUM/MAGNESIUM/SIMETH 30 ML CUP PO PRN ×2 (12:30→12:45)
[2017-05-05] MEDS ORDERED: ACETAMINOPHEN 325 MG TAB PO PRN ×2 (12:30→12:45)
[2017-05-05] MEDS ORDERED: LORazepam 2 MG/ML VIAL IM PRN ×2 (12:30→12:45)
[2017-05-05] MEDS ORDERED: diphenhydrAMINE HCL 50 MG CAP PO PRN (12:30)
[2017-05-05] MEDS ORDERED: MAGNESIUM HYDROXIDE SUSP 30 ML CUP PO PRN ×2 (12:30→12:45)
[2017-05-05] MEDS ORDERED: ALBUTEROL SULFATE 90 MCG/ACT HFA 8 GM INHALER INH PRN (12:30)
[2017-05-05] MEDS ORDERED: LORazepam 1 MG TAB PO PRN (12:45)
--- NOTE | 2017-05-05 12:50 | HHI.HP ---
Provisional Diagnosis Admission Date May 05, 2017 at 12:33 [place] I. Dementia with behavioral disturbance Certification of Person's Competence To Provide Express and Informed Consent I have personally examined Janette Pandya , a person being served at [facility] on, May 05, 2017 12:45. Express and informed consent means consent voluntarily given in writing, by a competent person, after sufficient explanation and disclosure of the subject matter involved to enable the person to make a knowing and willful decision without any element of force, fraud, deceit, duress, or other form of constraint or coercion. This person is 18 years of age or older, is not now known to be incompetent to consent to treatment with a guardian advocate, and does not have a health care surrogate or proxy currently making medical treatment decisions. I have found this person to be one of the following: [] Competent to provide express and informed consent, as defined above, for voluntary admission to this facility and is competent to provide express and informed consent for treatment. He/she has the consistent capacity to make well reasoned, willful, and knowing decisions concerning his or her medical or mental health treatment. The person fully and consistently understands the purpose of the admission for examination/placement and is fully capable of personally exercising all rights assured [place] [X] Incompetent to provide express and informed consent to voluntary admission, and this is incompetent to provide express and informed consent to treatment. The person must be transferred to involuntary status and a petition for a guardian advocate filed with the Circuit Court. [] Refusing to provide express and informed consent to voluntary admission but is competent to provide express and informed consent for treatment. The person must be discharged or transferred to involuntary status. Form shall be completed within 24 hours of a person's arrival at the receiving facility and filed in the clinical record of each person: 1. Admitted on a voluntary basis 2. Permitted to provide express and informed consent to his/her own treatment 3. Allowed to transfer from involuntary to voluntary status 4. Prior to permitting a person to consent to his or her own treatment after having been previously found incompetent to consent to treatment. History of Present Illness Capacity: Lacks Capacity HPI 76-year-old female admitted by this physician earlier this month, presents under a Stone act initiated by law enforcement for threatening to jump out of a window to kill herself and asking the environmental protection officer to shoot her. Patient apparently has a history of mental illness but at this time presents as confused with memory deficits, word finding difficulty, concentration problems, and irrational behavior. She states she does not remember threatening to jump out of the window. She states she "probably" asked a personal injury law specialist to shoot her. She admits to multiple symptoms of depression including depressed mood, anhedonia, irritability, suicidal ideation, suicidal plan, irritability, etc. However, she remains a poor historian, allegedly as a result of memory deficits associated with dementia. She denies the use of alcohol or drugs. Her toxicology screen is negative. Past Family Social History Coded Allergies: erythromycin base (Unverified Allergy, Severe, Hives, 04/27/17) Active Scripts Nitrofurantoin Monohydrate Macrocrystals (Macrobid) 100 Mg Capsule, 100 MG PO BID for Infection for 10 Days, #20 CAP 0 Refills Prov:Jean Pierre Hawthorne MD 05/05/17 Lactobacillus Acidophilus (Acidophilus/l-Sporogenes) 35 Million Cell-25 Million Cell Tab, 1 TAB PO TID for health, #90 TAB 0 Refills Prov:Silas Russo MD 05/03/17 Albuterol 18 GM Inh (Ventolin Hfa 18 GM Inh) 90 Mcg/Act Aer, 2 PUFF INH Q4H Y for SHORTNESS OF BREATH, #1 INHALER 0 Refills Prov:Silas Russo MD 05/03/17 Levothyroxine (Levothyroxine) 100 Mcg Tab, 100 MCG PO DAILY for Thyroid, #30 TAB 0 Refills Prov:Silas Russo MD 05/03/17 Hydrochlorothiazide (Hydrochlorothiazide) 12.5 Mg Cap, 12.5 MG PO DAILY for health, #30 CAP 0 Refills Prov:Silas Russo MD 05/03/17 Donepezil (Donepezil) 10 Mg Tab, 10 MG PO HS for Dementia, #30 TAB 0 Refills Prov:Silas Russo MD 05/03/17 Atorvastatin (Atorvastatin) 20 Mg Tab, 20 MG PO HS for Cholesterol Management, # 30 TAB Prov:Christos Valvrede MD 05/02/17 Reported Medications Benazepril (Benazepril) 5 Mg Tab, 5 MG PO DAILY for Blood Pressure Management, # 30 TAB 0 Refills 04/27/17 Discontinued Reported Medications Buspirone (Buspirone) 5 Mg Tab, 5 MG PO TID for Anxiety, TAB 0 Refills 04/27/17 Discontinued Scripts Nitrofurantoin Monohydrate Macrocrystals (Macrobid) 100 Mg Capsule, 100 MG PO BID for Infection for 7 Days, #14 CAP 0 Refills Prov:Deepali Wilson DO 04/27/17 Current Medications Medications (Trade) Dose Ordered Sig/Rudy Route Start Time Stop Time Status Last Admin (Proair Hfa Inh) 2 puff Q4H PRN INH 05/05/17 12:30 UNV (Lipitor) 20 mg HS PO 05/05/17 21:00 UNV (Prinivil) 5 mg DAILY PO 05/06/17 09:00 UNV (Aricept) 10 mg HS PO 05/05/17 21:00 UNV (Microzide) 12.5 mg DAILY PO 05/06/17 09:00 UNV (Lactinex) 1 tab TID PO 05/05/17 13:00 UNV (Synthroid) 100 mcg DAILY PO 05/06/17 09:00 UNV (Macrobid) 100 mg BID PO 05/05/17 21:00 UNV (Ativan) 0.5 mg Q12H PRN PO 05/05/17 12:30 UNV (Ativan Inj) 0.5 mg Q12H PRN IM 05/05/17 12:30 UNV (Benadryl) 50 mg HS PRN PO 05/05/17 12:30 UNV (Tylenol) 650 mg Q4H PRN PO 05/05/17 12:30 UNV (Milk Of Magnesia Liq) 30 ml DAILY PRN PO 05/05/17 12:30 UNV (Mag-Al Plus Susp Liq) 30 ml Q6H PRN PO 05/05/17 12:30 UNV (Habitrol 21 Mg Patch.24 Hr) 1 patch DAILY T-DERMAL 05/06/17 09:00 UNV Miscellaneous Information 1 DAILY T-DERMAL 05/06/17 09:00 UNV Physical Exam Vital Signs Vital Signs Date Time Temp Pulse Resp B/P (MAP) Pulse Ox O2 Delivery O2 Flow Rate FiO2 05/05/17 10:12 60 17 158/70 (99) 97 Room Air 05/05/17 01:01 98.0 Lab Results Test 05/05/17 01:35 White Blood Count 11.3 TH/MM3 Red Blood Count 5.02 MIL/MM3 Hemoglobin 15.9 GM/DL Hematocrit 47.4 % Mean Corpuscular Volume 94.4 FL Mean Corpuscular Hemoglobin 31.7 PG Mean Corpuscular Hemoglobin Concent 33.6 % Red Cell Distribution Width 13.6 % Platelet Count 330 TH/MM3 Mean Platelet Volume 9.9 FL Neutrophils (%) (Auto) 55.1 % Lymphocytes (%) (Auto) 33.0 % Monocytes (%) (Auto) 8.0 % Eosinophils (%) (Auto) 2.9 % Basophils (%) (Auto) 1.0 % Neutrophils # (Auto) 6.2 TH/MM3 Lymphocytes # (Auto) 3.7 TH/MM3 Monocytes # (Auto) 0.9 TH/MM3 Eosinophils # (Auto) 0.3 TH/MM3 Basophils # (Auto) 0.1 TH/MM3 CBC Comment DIFF FINAL Differential Comment Urine Color YELLOW Urine Turbidity HAZY Urine pH 5.0 Urine Specific [place] 1.019 Urine Protein TRACE mg/dL Urine Glucose (UA) NEG mg/dL Urine Ketones NEG mg/dL Urine Occult Blood TRACE Urine Nitrite NEG Urine Bilirubin NEG Urine Urobilinogen LESS THAN 2.0 MG/DL Urine Leukocyte Esterase LARGE Urine RBC 12 /hpf Urine WBC /hpf Urine Squamous Epithelial Cells 6 /hpf Urine Transitional Epithelial Cells <1 /hpf Urine Bacteria RARE /hpf Urine Hyaline Casts 3 /lpf Urine Mucus FEW /lpf Microscopic Urinalysis Comment CULTURE INDICATED Blood Urea Nitrogen 13 MG/DL Creatinine 0.76 MG/DL Random Glucose 93 MG/DL Total Protein 7.8 GM/DL Albumin 3.6 GM/DL Calcium Level 9.4 MG/DL Alkaline Phosphatase 79 U/L Aspartate Amino Transf (AST/SGOT) 38 U/L Alanine Aminotransferase (ALT/SGPT) 29 U/L Total Bilirubin 0.7 MG/DL Sodium Level 138 MEQ/L Potassium Level 4.5 MEQ/L Chloride Level 99 MEQ/L Carbon Dioxide Level 32.6 MEQ/L Anion Gap 6 MEQ/L Estimat Glomerular Filtration Rate 74 ML/MIN Thyroid Stimulating Hormone 3rd Gen 1.390 uIU/ML Salicylates Level LESS THAN 1.7 MG/DL Urine Opiates Screen NEG Acetaminophen Level LESS THAN 2.0 MCG/ML Urine Barbiturates Screen NEG Urine Amphetamines Screen NEG Urine Benzodiazepines Screen NEG Urine Cocaine Screen NEG Urine Cannabinoids Screen NEG Ethyl Alcohol Level LESS THAN 3 MG/DL Date/Time Source Procedure Growth Status 05/05/17 01:35 Urine Random Urine Urine Culture Pending Received Mental Status Examination Appearance: Appropriate, Disheveled Consciousness: Alert Orientation: Person, Place Motor Activity: Normal gait Speech: Hesitant Language: Other Fund of Knowledge: Inadequate Attention and Concentration: Inadequate Memory: Impaired Mood: Irritable Affect: Irritable Thought Process & Associations: Circumstantial, Disorganized Thought Content: Bizarre thinking Hallucination Type: None Delusion Type: None Suicidal Ideation: Yes Suicidal Plan: Yes Suicidal Intention: Yes Homicidal Ideation: No Homicidal Plan: No Homicidal Intention: No Insight: Fair Judgment: Impulsive Assessment & Plan Problem List: (1) Dementia in other diseases classified elsewhere with behavioral disturbance ICD Codes: F02.81 - Dementia in other diseases classified elsewhere with behavioral disturbance (2) Alzheimer's dementia with behavioral disturbance ICD Codes: G30.9 - Alzheimer's disease, unspecified; F02.81 - Dementia in other diseases classified elsewhere with behavioral disturbance Assessment & Plan Estimated LOS: days Problem Qualifiers (1) Alzheimer's dementia with behavioral disturbance: Qualified Codes: G30.9 - Alzheimer's disease, unspecified; F02.81 - Dementia in other diseases classified elsewhere with behavioral disturbance Redd Miller MD May 05, 2017 12:50
[2017-05-05] MEDS: LACTOBACILLUS ACIDOPHILUS TAB PO SCH ×2 (13:36→17:31)
[2017-05-05 14:11] VITALS: BP 165/80; PULSE 80; RESP 18; O2SAT 98
--- NOTE | 2017-05-05 14:22 | PD.CONS ---
HPI Service [facility] Consult Requested By Psychiatry Reason for Consult Medical management Primary Care Physician No Primary Care Physician Diagnoses: History of Present Illness 76 years old female presented to the ED department under Stone act due to threatening of killing herself, hospitalist were asked to see the patient regarding medical management, I saw the patient she was laying in bed with her friend at the bedside as well as the sitter, she was pleasant denied any complain, her blood soni her was 165/80, she has a history of hypertension, alcoholic liver disease, hyperlipidemia, hypothyroidism, Alzheimer's and asthma which seems to be stable at this point except blood pressure, however I discussed with the nurse patient was agitated when that reading was obtained Review of Systems All systems reviewed and was positive for what is mentioned in history of present illness otherwise negative Past Family Social History Allergies: Coded Allergies: erythromycin base (Unverified Allergy, Severe, Hives, 04/27/17) Past Medical History As in history of present illness Past Surgical History As in history of present illness Family History Review with the patient,not aware of significant medical history runs in his family Social History History of alcohol abuse Physical Exam Vital Signs Vital Signs Date Time Temp Pulse Resp B/P (MAP) Pulse Ox O2 Delivery O2 Flow Rate FiO2 05/05/17 14:11 80 18 165/80 (108) 98 Room Air 05/05/17 14:10 05/05/17 10:12 60 17 158/70 (99) 97 Room Air 05/05/17 07:30 67 18 180/78 (112) 97 Room Air 05/05/17 01:01 98.0 90 18 174/88 (116) 96 Physical Exam GENERAL: This is a well-nourished, well-developed patient, in no apparent distress. SKIN: No rashes, warm and dry HEAD: Atraumatic. Normocephalic. EYES: Pupils equal round and reactive. Extraocular motions intact. No scleral icterus. ENT: Nose without bleeding, or drainage, Airway patent. NECK: Trachea midline. Supple CARDIOVASCULAR: Regular rate and rhythm without murmurs, gallops, or rubs. RESPIRATORY: Fair air entry bilaterally. No wheezes, rales, or rhonchi. GASTROINTESTINAL: Abdomen soft, non-tender, nondistended. Positive bowel sounds MUSCULOSKELETAL: Extremities without clubbing, cyanosis, or edema. Pedal pulses appreciated NEUROLOGICAL: Awake and alert. Moves all extremity. Normal speech.no focal neurological deficit Laboratory Laboratory Tests Test 05/05/17 01:35 White Blood Count 11.3 Red Blood Count 5.02 Hemoglobin 15.9 Hematocrit 47.4 Mean Corpuscular Volume 94.4 Mean Corpuscular Hemoglobin 31.7 Mean Corpuscular Hemoglobin Concent 33.6 Red Cell Distribution Width 13.6 Platelet Count 330 Mean Platelet Volume 9.9 Neutrophils (%) (Auto) 55.1 Lymphocytes (%) (Auto) 33.0 Monocytes (%) (Auto) 8.0 Eosinophils (%) (Auto) 2.9 Basophils (%) (Auto) 1.0 Neutrophils # (Auto) 6.2 Lymphocytes # (Auto) 3.7 Monocytes # (Auto) 0.9 Eosinophils # (Auto) 0.3 Basophils # (Auto) 0.1 CBC Comment DIFF FINAL Differential Comment Urine Color YELLOW Urine Turbidity HAZY Urine pH 5.0 Urine Specific [place] 1.019 Urine Protein TRACE Urine Glucose (UA) NEG Urine Ketones NEG Urine Occult Blood TRACE Urine Nitrite NEG Urine Bilirubin NEG Urine Urobilinogen LESS THAN 2.0 Urine Leukocyte Esterase LARGE Urine RBC 12 Urine WBC Urine Squamous Epithelial Cells 6 Urine Transitional Epithelial Cells <1 Urine Bacteria RARE Urine Hyaline Casts 3 Urine Mucus FEW Microscopic Urinalysis Comment CULTURE INDICATED Blood Urea Nitrogen 13 Creatinine 0.76 Random Glucose 93 Total Protein 7.8 Albumin 3.6 Calcium Level 9.4 Alkaline Phosphatase 79 Aspartate Amino Transf (AST/SGOT) 38 Alanine Aminotransferase (ALT/SGPT) 29 Total Bilirubin 0.7 Sodium Level 138 Potassium Level 4.5 Chloride Level 99 Carbon Dioxide Level 32.6 Anion Gap 6 Estimat Glomerular Filtration Rate 74 Thyroid Stimulating Hormone 3rd Gen 1.390 Salicylates Level LESS THAN 1.7 Urine Opiates Screen NEG Acetaminophen Level LESS THAN 2.0 Urine Barbiturates Screen NEG Urine Amphetamines Screen NEG Urine Benzodiazepines Screen NEG Urine Cocaine Screen NEG Urine Cannabinoids Screen NEG Ethyl Alcohol Level LESS THAN 3 Date/Time Source Procedure Growth Status 05/05/17 01:35 Urine Random Urine Urine Culture Pending Received Result Diagram: 05/05/17 0135 05/05/175 Assessment and Plan Assessment and Plan 76 years old female admitted to [facility] due to suicide attempt, hospitalist consulted for medical management Hypertension UTI Alcoholic liver disease Hyperlipidemia Hypothyroidism History of asthma History of Alzheimer DVT prophylaxis with ambulation Recommendation: Agree with continuing lisinopril hydrochlorothiazide levothyroxin and Aricept, agree with Macrobid for UTI , I don't have more to add to this patient care I will sign off and be available as needed, Thank you for this consultation Jose Alejadnro Goodman MD May 05, 2017 14:22
[2017-05-05 14:50] VITALS: BP 158/69; PULSE 73; RESP 16; TEMP 97.5; O2SAT 98
[2017-05-05 17:45] VITALS: BP 158/69; PULSE 73; RESP 16; TEMP 97.5; O2SAT 98
[2017-05-05] MEDS: ATORVASTATIN 20 MG TAB PO SCH (22:09)
[2017-05-05] MEDS: NITROFURANTOIN MONOHYD MACROCR 100 MG CAP PO SCH (22:10)
[2017-05-05] MEDS: DONEPEZIL HCL 5 MG TAB PO SCH (22:10)
[2017-05-06] MEDS: LEVOTHYROXINE SODIUM 100 MCG TAB PO SCH (05:14)
[2017-05-06 05:39] VITALS: BP 169/70; PULSE 79; RESP 16; TEMP 98.3; O2SAT 93
[2017-05-06] MEDS: REMOVE OLD PATCH T-DERMAL SCH (09:00)
[2017-05-06] MEDS: NICOTINE 21 MG/24 HR PATCH T-DERMAL SCH (09:00)
[2017-05-06] MEDS: HYDROCHLOROTHIAZIDE 12.5 MG CAP PO SCH (10:02)
[2017-05-06] MEDS: LACTOBACILLUS ACIDOPHILUS TAB PO SCH ×3 (10:02→18:12)
[2017-05-06] MEDS: LISINOPRIL 5 MG TAB PO SCH (10:02)
--- NOTE | 2017-05-06 11:14 | EKG ---
Date Performed: 05/06/2017 Time Performed: 08:38:47 PTAGE: 76 years EKG: Sinus rhythm NONSPECIFIC T-WAVE ABNORMALITY BORDERLINE ECG No significant change from prior electrocardiogram. PREVIOUS TRACING : 04/28/2017 15.00 DOCTOR: Barak Orozco Interpretating Date/Time 05/06/2017 11:13:39
[2017-05-06 11:24] LABS: AUTOMATED NEUTROPHIL # 9.2 TH/MM3 (1.8-7.7); BASOPHIL # 0.1 TH/MM3 (0-0.2); BASOPHIL % 0.5 % (0.0-2.0); EOSINOPHIL # 0.4 TH/MM3 (0-0.4); EOSINOPHIL % 3.6 % (0.0-4.0); HEMATOCRIT 47.9 % (35.0-46.0); HEMOGLOBIN 16.2 GM/DL (11.6-15.3); LYMPH % 8.3 % (9.0-44.0); MEAN CELL VOLUME 94.8 FL (80.0-100.0); MEAN CORPUSCULAR HGB CONC 33.8 % (32.0-36.0); MEAN PLATELET VOLUME 10.3 FL (7.0-11.0); MONO % 7.7 % (0.0-8.0); MONOCYTE # 0.9 TH/MM3 (0-0.9); NEUT % 79.9 % (16.0-70.0); PLATELET COUNT 303 TH/MM3 (150-450); RED BLOOD COUNT 5.06 MIL/MM3 (4.00-5.30); RED CELL DISTRIBUTION WIDTH 13.5 % (11.6-17.2); WHITE BLOOD COUNT 11.5 TH/MM3 (4.0-11.0)
[2017-05-06] MEDS ORDERED: ACETAMINOPHEN 325 MG TAB PO PRN (11:30)
[2017-05-06] MEDS ORDERED: MAGNESIUM HYDROXIDE SUSP 30 ML CUP PO PRN (11:30)
[2017-05-06] MEDS ORDERED: ALUMINUM/MAGNESIUM/SIMETH 30 ML CUP PO PRN (11:30)
--- NOTE | 2017-05-06 11:36 | HHI.PYPN ---
Subjective Remarks Patient initially seen by Dr. Redd Miller who dictated the initial psychiatric history and physical. I have finished the initial psychiatric template orders. And also review the medication reconciliation. At the present time patient seen in the [place] with nurse Crystal. Patient is alert diffusely confused all 4 spheres. Though she vaguely remembered my face from her prior hospitalization. She states she has no memory of making the suicidal statements that are listed in her medical record. She is calm and pleasant with me and denies suicidality at this time. For now we will continue medications per the med reconciliation. We need to contract patient's daughter to discuss perhaps a more restrictive placement Review of Systems Constitutional: DENIES: Diaphoretic episodes, Fatigue, Fever, Weight gain, Weight loss, Chills, Dizziness, Change in appetite, Night Sweats Endocrine: DENIES: Abnorml menstrual pattern, Heat/cold intolerance, Polydipsia , Polyuria, Polyphagia Eyes: DENIES: Blurred vision, Diplopia, Eye inflammation, Eye pain, Vision loss , Photosensitivity, Double Vision Ears, nose, mouth, throat: DENIES: Tinnitus, Hearing loss, Vertigo, Nasal discharge, Oral lesions, Throat pain, Hoarseness, Ear Pain, Running Nose, Epistaxis, Sinus Pain, Toothache, Odynophagia Respiratory: DENIES: Apneas, Cough, Snoring, Wheezing, Hemoptysis, Sputum production, Shortness of breath Cardiovascular: DENIES: Chest pain, Palpitations, Syncope, Dyspnea on Exertion , PND, Lower Extremity Edema, Orthopnea, Claudication Gastrointestinal: DENIES: Abdominal pain, Black stools, Bloody stools, Constipation, Diarrhea, Nausea, Vomiting, Difficulty Swallowing, Anorexia Genitourinary: DENIES: Abnormal vaginal bleeding, Dysmenorrhea, Dyspareunia, Sexual dysfunction, Urinary frequency, Urinary incontinence, Urgency, Hematuria , Dysuria, Nocturia, Vaginal discharge Musculoskeletal: DENIES: Joint pain, Muscle aches, Stiffness, Joint Swelling, Back pain, Neck pain Integumentary: DENIES: Abnormal pigmentation, Pruritus, Rash, Nail changes, Breast masses, Breast skin changes, Nipple discharge Hematologic/lymphatic: DENIES: Bruising, Lymphadenopathy Immunologic/allergic: DENIES: Eczema, Urticaria Neurologic: DENIES: Abnormal gait, Headache, Localized weakness, Paresthesias, Seizures, Speech Problems, Tremor, Poor Balance Psychiatric: DENIES: Anxiety, Confusion, Mood changes, Depression, Hallucinations, Agitation, Suicidal Ideation, Homicidal Ideation, Delusions Mental Status Examination Appearance: Appropriate, Disheveled Consciousness: Alert Orientation: Person, Place Motor Activity: Normal gait Speech: Hesitant Language: Other Fund of Knowledge: Inadequate Attention and Concentration: Inadequate Memory: Impaired Mood: Irritable Affect: Irritable Thought Process & Associations: Circumstantial, Disorganized Thought Content: Bizarre thinking Hallucination Type: None Delusion Type: None Suicidal Ideation: Yes Suicidal Plan: Yes Suicidal Intention: Yes Homicidal Ideation: No Homicidal Plan: No Homicidal Intention: No Insight: Fair Judgment: Impulsive Results Labs Test 05/06/17 10:18 White Blood Count 11.5 TH/MM3 Red Blood Count 5.06 MIL/MM3 Hemoglobin 16.2 GM/DL Hematocrit 47.9 % Mean Corpuscular Volume 94.8 FL Mean Corpuscular Hemoglobin 32.0 PG Mean Corpuscular Hemoglobin Concent 33.8 % Red Cell Distribution Width 13.5 % Platelet Count 303 TH/MM3 Mean Platelet Volume 10.3 FL Neutrophils (%) (Auto) 79.9 % Lymphocytes (%) (Auto) 8.3 % Monocytes (%) (Auto) 7.7 % Eosinophils (%) (Auto) 3.6 % Basophils (%) (Auto) 0.5 % Neutrophils # (Auto) 9.2 TH/MM3 Lymphocytes # (Auto) 1.0 TH/MM3 Monocytes # (Auto) 0.9 TH/MM3 Eosinophils # (Auto) 0.4 TH/MM3 Basophils # (Auto) 0.1 TH/MM3 CBC Comment DIFF FINAL Differential Comment Date/Time Source Procedure Growth Status 05/05/17 01:35 Urine Random Urine Urine Culture Pending Received Vitals/IOs Vital Signs Date Time Temp Pulse Resp B/P (MAP) Pulse Ox O2 Delivery O2 Flow Rate FiO2 05/06/17 05:39 98.3 79 16 169/70 (103) 93 05/05/17 14:11 Room Air Intake and Output 05/06/17 05/06/17 05/07/17 08:00 16:00 00:00 Intake Total 0 ml 120 ml Balance 0 ml 120 ml Assessment & Plan Problem List: (1) Dementia in other diseases classified elsewhere with behavioral disturbance ICD Codes: F02.81 - Dementia in other diseases classified elsewhere with behavioral disturbance (2) ALZHEIMER'S DISEASE WITH LATE ONSET ICD Codes: G30.1 - ALZHEIMER'S DISEASE WITH LATE ONSET Assessment & Plan Estimated LOS: days patient remains confused demented, though no behavior problems at this time. There is no recollection of the statements made that led to her being Stone acted and transferred here. Patient per the EMR. Need to confer with patient's daughter to discuss perhaps more restrictive safe placement Justification for Cont. Inpt. At this time patient will decompensate placed in the lower level of care Discharge Planning Need to confer with patient's daughter Request HC Surrog/Guard Advoc?: Yes Silas Russo MD May 06, 2017 11:36
[2017-05-06 11:42] LABS: ALBUMIN 3.7 GM/DL (3.4-5.0); ALT (GPT) 23 U/L (10-53); AST (GOT) 28 U/L (15-37); BLOOD UREA NITROGEN 9 MG/DL (7-18); CALCIUM 9.5 MG/DL (8.5-10.1); CHLORIDE 99 MEQ/L (98-107); CHOLESTEROL 195 MG/DL (120-200); CREATININE 0.74 MG/DL (0.50-1.00); GLOMERULAR FILTRATION RATE 77 ML/MIN (>89); GLUCOSE,RANDOM 99 MG/DL (74-106); SODIUM (NA) 139 MEQ/L (136-145)
[2017-05-06 12:08] LABS: ALKALINE PHOSPHATASE 78 U/L (45-117); CHOLESTEROL/ HDL RATIO 3.22 RATIO; HDL CHOLESTEROL 60.4 MG/DL (40.0-60.0); LDL CHOLESTEROL 111 MG/DL (0-99); TOTAL PROTEIN 7.4 GM/DL (6.4-8.2); TRIGLYCERIDES 117 MG/DL (42-150)
[2017-05-06 14:14] LABS: HEMOGLOBIN A1C 5.2 % (4.3-6.0)
[2017-05-06] MEDS: NITROFURANTOIN MONOHYD MACROCR 100 MG CAP PO SCH ×2 (15:13→22:15)
[2017-05-06 17:30] VITALS: BP 106/52; PULSE 72; RESP 16; TEMP 98.2; O2SAT 95
[2017-05-06] MEDS: ATORVASTATIN 20 MG TAB PO SCH (22:15)
[2017-05-06] MEDS: DONEPEZIL HCL 5 MG TAB PO SCH (22:15)
[2017-05-07 06:00] VITALS: BP 136/61; PULSE 76; RESP 17; TEMP 98.6; O2SAT 91
[2017-05-07] MEDS: LEVOTHYROXINE SODIUM 100 MCG TAB PO SCH (06:09)
[2017-05-07] MEDS: REMOVE OLD PATCH T-DERMAL SCH (09:00)
[2017-05-07] MEDS: NICOTINE 21 MG/24 HR PATCH T-DERMAL SCH (09:00)
[2017-05-07] MEDS: HYDROCHLOROTHIAZIDE 12.5 MG CAP PO SCH (09:12)
[2017-05-07] MEDS: LACTOBACILLUS ACIDOPHILUS TAB PO SCH ×3 (09:12→18:16)
[2017-05-07] MEDS: LISINOPRIL 5 MG TAB PO SCH (09:12)
[2017-05-07] MEDS: NITROFURANTOIN MONOHYD MACROCR 100 MG CAP PO SCH ×2 (09:12→20:52)
--- NOTE | 2017-05-07 15:26 | HHI.PYPN ---
Subjective Remarks Patient was seen and case discussed with nursing. Patient is pleasant and cooperative with exam. She minimizes her statement before admission. She is asking to leave. Affect is constricted. Insight is poor. She denies suicidal homicidal ideation intent or plan. Largely seclusive to self. Compliant with medications Mental Status Examination Appearance: Appropriate, Disheveled Consciousness: Alert Orientation: Person, Place Motor Activity: Normal gait Speech: Hesitant Language: Other Fund of Knowledge: Inadequate Attention and Concentration: Inadequate Memory: Impaired Mood: Irritable Affect: Irritable Thought Process & Associations: Circumstantial, Disorganized Thought Content: Bizarre thinking Hallucination Type: None Delusion Type: None Suicidal Ideation: Yes Suicidal Plan: Yes Suicidal Intention: Yes Homicidal Ideation: No Homicidal Plan: No Homicidal Intention: No Insight: Fair Judgment: Impulsive Results Labs Date/Time Source Procedure Growth Status 05/05/17 01:35 Urine Random Urine Urine Culture - Final 50-100,000 CFU/ML MIXED GRAM POSITIVE... Complete Vitals/IOs Vital Signs Date Time Temp Pulse Resp B/P (MAP) Pulse Ox O2 Delivery O2 Flow Rate FiO2 05/07/17 06:00 98.6 76 17 136/61 (86) 91 05/05/17 14:11 Room Air Intake and Output 05/07/17 05/07/17 05/08/17 08:00 16:00 00:00 Intake Total 360 ml Balance 360 ml Assessment & Plan Problem List: (1) Dementia in other diseases classified elsewhere with behavioral disturbance ICD Codes: F02.81 - Dementia in other diseases classified elsewhere with behavioral disturbance (2) ALZHEIMER'S DISEASE WITH LATE ONSET ICD Codes: G30.1 - ALZHEIMER'S DISEASE WITH LATE ONSET Assessment & Plan Continue current treatment plan Justification for Cont. Inpt. Patient would decompensate in a less restrictive setting Request HC Surrog/Guard Advoc?: Yes Pranay Gomez DO May 07, 2017 15:25
[2017-05-07 17:54] VITALS: BP 99/51; PULSE 75; RESP 18; TEMP 97.7; O2SAT 92
[2017-05-07] MEDS: DONEPEZIL HCL 5 MG TAB PO SCH (20:52)
[2017-05-07] MEDS: ATORVASTATIN 20 MG TAB PO SCH (20:52)
[2017-05-08 06:07] VITALS: BP 118/58; PULSE 70; RESP 17; TEMP 98.4; O2SAT 92
[2017-05-08] MEDS: LEVOTHYROXINE SODIUM 100 MCG TAB PO SCH (06:39)
[2017-05-08] MEDS: REMOVE OLD PATCH T-DERMAL SCH (09:00)
[2017-05-08] MEDS: NICOTINE 21 MG/24 HR PATCH T-DERMAL SCH (09:00)
[2017-05-08] MEDS: NITROFURANTOIN MONOHYD MACROCR 100 MG CAP PO SCH ×2 (09:25→21:09)
[2017-05-08] MEDS: LACTOBACILLUS ACIDOPHILUS TAB PO SCH ×3 (09:25→18:36)
[2017-05-08] MEDS: HYDROCHLOROTHIAZIDE 12.5 MG CAP PO SCH (09:25)
[2017-05-08] MEDS: LISINOPRIL 5 MG TAB PO SCH (09:25)
--- NOTE | 2017-05-08 15:55 | HHI.PYPN ---
Subjective Remarks Patient was seen and case discussed with nursing. Patient is perseverative on discharge. She continues to claim that statement she made about jumping out the window was impulsive and she had no intent of doing so. Mood is improving. Eating and sleeping well. Tolerating medications well. Behaving well on the unit Mental Status Examination Appearance: Appropriate, Disheveled Consciousness: Alert Orientation: Person, Place Motor Activity: Normal gait Speech: Hesitant Language: Other Fund of Knowledge: Adequate Attention and Concentration: Inadequate Memory: Impaired Mood: Irritable Affect: Irritable Thought Process & Associations: Circumstantial, Disorganized Thought Content: Bizarre thinking Hallucination Type: None Delusion Type: None Suicidal Ideation: No Suicidal Plan: No Suicidal Intention: No Homicidal Ideation: No Homicidal Plan: No Homicidal Intention: No Insight: Fair Judgment: Impulsive Results Labs Date/Time Source Procedure Growth Status 05/05/17 01:35 Urine Random Urine Urine Culture - Final 50-100,000 CFU/ML MIXED GRAM POSITIVE... Complete Vitals/IOs Vital Signs Date Time Temp Pulse Resp B/P (MAP) Pulse Ox O2 Delivery O2 Flow Rate FiO2 05/08/17 06:07 98.4 70 17 118/58 (78) 92 05/05/17 14:11 Room Air Intake and Output 05/08/17 05/08/17 05/09/17 08:00 16:00 00:00 Intake Total 0 ml 240 ml Balance 0 ml 240 ml Assessment & Plan Problem List: (1) Dementia in other diseases classified elsewhere with behavioral disturbance ICD Codes: F02.81 - Dementia in other diseases classified elsewhere with behavioral disturbance (2) ALZHEIMER'S DISEASE WITH LATE ONSET ICD Codes: G30.1 - ALZHEIMER'S DISEASE WITH LATE ONSET Assessment & Plan Continue current treatment plan Justification for Cont. Inpt. Patient would decompensate in a less restrictive setting Request HC Surrog/Guard Advoc?: Yes Pranay Gomez DO May 08, 2017 15:55
[2017-05-08 18:17] VITALS: BP 110/53; PULSE 74; RESP 18; TEMP 98; O2SAT 94
[2017-05-08] MEDS: ATORVASTATIN 20 MG TAB PO SCH (21:09)
[2017-05-08] MEDS: DONEPEZIL HCL 5 MG TAB PO SCH (21:10)
[2017-05-09] MEDS: LEVOTHYROXINE SODIUM 100 MCG TAB PO SCH (05:38)
[2017-05-09 05:46] VITALS: BP 120/60; PULSE 76; RESP 16; TEMP 98; O2SAT 100
[2017-05-09] MEDS: NITROFURANTOIN MONOHYD MACROCR 100 MG CAP PO SCH ×2 (08:41→20:36)
[2017-05-09] MEDS: LACTOBACILLUS ACIDOPHILUS TAB PO SCH ×3 (08:41→17:25)
[2017-05-09] MEDS: HYDROCHLOROTHIAZIDE 12.5 MG CAP PO SCH (08:41)
[2017-05-09] MEDS: LISINOPRIL 5 MG TAB PO SCH (08:41)
[2017-05-09] MEDS: REMOVE OLD PATCH T-DERMAL SCH (09:00)
[2017-05-09] MEDS: NICOTINE 21 MG/24 HR PATCH T-DERMAL SCH (09:00)
--- NOTE | 2017-05-09 10:24 | HHI.PYPN ---
Subjective Remarks Patient seen in her room with nurse Jason, chart review, patient compliant medication. Patient calm cooperative pleasantly confused with me now denies suicidality homicidality voices or visions says she wants to go back to [facility]. Isidro also talked the patient's daughter Milvia at [phone] per she states her mother had some outbursts towards afternoon and evening while there irritability and impulsive type statements such as what led her to this hospitalization. She wonders if having some medication to help calm that would be appropriate. Agree with her. We'll start her on Seroquel 25 mg twice a day at noon and 6 PM. Patient's daughter who is health care surrogate permission for that medication. Patient behaves well for next 24-40 hours consider return to that facility if they will accept her Review of Systems Except as stated in HPI: all other systems reviewed are Neg Mental Status Examination Appearance: Appropriate, Disheveled Consciousness: Alert Orientation: Person, Place Motor Activity: Normal gait Speech: Hesitant Language: Other Fund of Knowledge: Adequate Attention and Concentration: Inadequate Memory: Impaired Mood: Irritable Affect: Irritable Thought Process & Associations: Circumstantial, Disorganized Thought Content: Bizarre thinking Hallucination Type: None Delusion Type: None Suicidal Ideation: No Suicidal Plan: No Suicidal Intention: No Homicidal Ideation: No Homicidal Plan: No Homicidal Intention: No Insight: Fair Judgment: Impulsive Results Labs Date/Time Source Procedure Growth Status 05/05/17 01:35 Urine Random Urine Urine Culture - Final 50-100,000 CFU/ML MIXED GRAM POSITIVE... Complete Vitals/IOs Vital Signs Date Time Temp Pulse Resp B/P (MAP) Pulse Ox O2 Delivery O2 Flow Rate FiO2 05/09/17 05:46 98.0 76 16 120/60 (80) 100 05/05/17 14:11 Room Air Intake and Output 05/09/17 05/09/17 05/10/17 08:00 16:00 00:00 Intake Total 0 ml 120 ml Balance 0 ml 120 ml Assessment & Plan Problem List: (1) Dementia in other diseases classified elsewhere with behavioral disturbance ICD Codes: F02.81 - Dementia in other diseases classified elsewhere with behavioral disturbance (2) ALZHEIMER'S DISEASE WITH LATE ONSET ICD Codes: G30.1 - ALZHEIMER'S DISEASE WITH LATE ONSET Assessment & Plan Estimated LOS: days patient Megan confused with me, is also a conversation with patient's daughter. We'll add medication as mentioned above Justification for Cont. Inpt. With this time patient will decompensate if placed in a lower level of care Discharge Planning Potentially to return to [facility] Request HC Surrog/Guard Advoc?: Yes Sials Russo MD May 09, 2017 10:24
[2017-05-09] MEDS: QUEtiapine FUMARATE 25 MG TAB PO SCH ×2 (12:00→19:15)
[2017-05-09 17:16] VITALS: BP 95/52; PULSE 70; RESP 16; TEMP 98.2; O2SAT 94
[2017-05-09 17:18] VITALS: BP 95/52; PULSE 70; RESP 16; TEMP 98.2; O2SAT 94
[2017-05-09] MEDS: ATORVASTATIN 20 MG TAB PO SCH (20:36)
[2017-05-09] MEDS: DONEPEZIL HCL 5 MG TAB PO SCH (20:36)
[2017-05-10] MEDS: LEVOTHYROXINE SODIUM 100 MCG TAB PO SCH (05:22)
[2017-05-10 05:32] VITALS: BP 150/66; PULSE 90; RESP 18; TEMP 97.5; O2SAT 90
[2017-05-10] MEDS: NITROFURANTOIN MONOHYD MACROCR 100 MG CAP PO SCH ×2 (08:58→20:46)
[2017-05-10] MEDS: LACTOBACILLUS ACIDOPHILUS TAB PO SCH ×3 (08:58→18:00)
[2017-05-10] MEDS: HYDROCHLOROTHIAZIDE 12.5 MG CAP PO SCH (08:58)
[2017-05-10] MEDS: LISINOPRIL 5 MG TAB PO SCH (08:59)
[2017-05-10] MEDS: NICOTINE 21 MG/24 HR PATCH T-DERMAL SCH (09:00)
[2017-05-10] MEDS: REMOVE OLD PATCH T-DERMAL SCH (09:00)
--- NOTE | 2017-05-10 12:53 | HHI.PYPN ---
Subjective Remarks Patient seen in day room with family friend and her . Patient calm pleasant confused. Patient's appears adamant that wanting to sleep with his at the halfway. I am unable to order that for for him. Family needs to discuss this with the administration at the halfway. Patient slept well last night had no significant behavioral problems. We did talk to the patient's daughter on the phone they're concerned about the possibility of behaviors at the halfway. It appears that her expectations for medication management are somewhat exaggerated. I did suggest that they maintain the dose of the Seroquel is a proactive method to get behavioral control. Willing to consider this Review of Systems Except as stated in HPI: all other systems reviewed are Neg Mental Status Examination Appearance: Appropriate, Disheveled Consciousness: Alert Orientation: Person, Place Motor Activity: Normal gait Speech: Hesitant Language: Other Fund of Knowledge: Adequate Attention and Concentration: Inadequate Memory: Impaired Mood: Irritable Affect: Irritable Thought Process & Associations: Circumstantial, Disorganized Thought Content: Bizarre thinking Hallucination Type: None Delusion Type: None Suicidal Ideation: No Suicidal Plan: No Suicidal Intention: No Homicidal Ideation: No Homicidal Plan: No Homicidal Intention: No Insight: Fair Judgment: Impulsive Results Labs Date/Time Source Procedure Growth Status 05/05/17 01:35 Urine Random Urine Urine Culture - Final 50-100,000 CFU/ML MIXED GRAM POSITIVE... Complete Vitals/IOs Vital Signs Date Time Temp Pulse Resp B/P (MAP) Pulse Ox O2 Delivery O2 Flow Rate FiO2 05/10/17 05:32 97.5 90 18 150/66 (94) 90 Intake and Output 05/10/17 05/10/17 05/11/17 08:00 16:00 00:00 Intake Total 240 ml Balance 240 ml Assessment & Plan Problem List: (1) Dementia in other diseases classified elsewhere with behavioral disturbance ICD Codes: F02.81 - Dementia in other diseases classified elsewhere with behavioral disturbance (2) ALZHEIMER'S DISEASE WITH LATE ONSET ICD Codes: G30.1 - ALZHEIMER'S DISEASE WITH LATE ONSET Assessment & Plan Estimated LOS: days patient continues confused and demented, though has been no behavior problems through last night Justification for Cont. Inpt. At this time patient decompensated placed in a lower level of care Discharge Planning Continue working with family Request HC Surrog/Guard Advoc?: Yes Silas Russo MD May 10, 2017 12:53
[2017-05-10] MEDS: QUEtiapine FUMARATE 25 MG TAB PO SCH ×2 (17:40→18:00)
[2017-05-10 18:01] VITALS: BP 124/58; PULSE 70; RESP 18; TEMP 98.1; O2SAT 95
[2017-05-10] MEDS: DONEPEZIL HCL 5 MG TAB PO SCH (20:46)
[2017-05-10] MEDS: ATORVASTATIN 20 MG TAB PO SCH (20:46)
[2017-05-11 05:41] VITALS: BP 146/64; PULSE 69; RESP 16; TEMP 98.5; O2SAT 95
[2017-05-11] MEDS: LEVOTHYROXINE SODIUM 100 MCG TAB PO SCH (06:01)
[2017-05-11] MEDS: NICOTINE 21 MG/24 HR PATCH T-DERMAL SCH (08:15)
[2017-05-11] MEDS: HYDROCHLOROTHIAZIDE 12.5 MG CAP PO SCH (08:15)
[2017-05-11] MEDS: LISINOPRIL 5 MG TAB PO SCH (08:15)
[2017-05-11] MEDS: NITROFURANTOIN MONOHYD MACROCR 100 MG CAP PO SCH ×2 (08:15→20:30)
[2017-05-11] MEDS: LACTOBACILLUS ACIDOPHILUS TAB PO SCH ×3 (08:15→17:09)
[2017-05-11] MEDS: REMOVE OLD PATCH T-DERMAL SCH (08:16)
[2017-05-11] MEDS: QUEtiapine FUMARATE 25 MG TAB PO SCH ×2 (12:22→17:09)
--- NOTE | 2017-05-11 15:03 | HHI.PYPN ---
Subjective Remarks Patient seen in her room with nurse Aparna, chart review, patient compliant medications. Patient continues diffusely confused, though at times makes attempts to mask it. She is scheduled for [facility] tomorrow. Hopefully patient may be able to return to her prior placement a [facility] Review of Systems Except as stated in HPI: all other systems reviewed are Neg Mental Status Examination Appearance: Appropriate, Disheveled Consciousness: Alert Orientation: Person, Place Motor Activity: Normal gait Speech: Hesitant Language: Other Fund of Knowledge: Adequate Attention and Concentration: Inadequate Memory: Impaired Mood: Irritable Affect: Irritable Thought Process & Associations: Circumstantial, Disorganized Thought Content: Bizarre thinking Hallucination Type: None Delusion Type: None Suicidal Ideation: No Suicidal Plan: No Suicidal Intention: No Homicidal Ideation: No Homicidal Plan: No Homicidal Intention: No Insight: Fair Judgment: Impulsive Results Labs Date/Time Source Procedure Growth Status 05/05/17 01:35 Urine Random Urine Urine Culture - Final 50-100,000 CFU/ML MIXED GRAM POSITIVE... Complete Vitals/IOs Vital Signs Date Time Temp Pulse Resp B/P (MAP) Pulse Ox O2 Delivery O2 Flow Rate FiO2 05/11/17 05:41 98.5 69 16 146/64 (91) 95 Intake and Output 05/11/17 05/11/17 05/12/17 08:00 16:00 00:00 Intake Total 240 ml 240 ml Balance 240 ml 240 ml Assessment & Plan Problem List: (1) Dementia in other diseases classified elsewhere with behavioral disturbance ICD Codes: F02.81 - Dementia in other diseases classified elsewhere with behavioral disturbance (2) ALZHEIMER'S DISEASE WITH LATE ONSET ICD Codes: G30.1 - ALZHEIMER'S DISEASE WITH LATE ONSET Assessment & Plan Estimated LOS: days patient continues diffusely confused demented, compliant medications. Patient scheduled for [facility] tomorrow. Placement remain somewhat problematic Justification for Cont. Inpt. This time patient would compensative placed in the lower level of care Discharge Planning Hopefully to be returned to her placement [facility] Request HC Surrog/Guard Advoc?: Yes Silas Russo MD May 11, 2017 15:03
[2017-05-11 18:00] VITALS: BP 109/54; PULSE 70; RESP 17; TEMP 98; O2SAT 93
[2017-05-11] MEDS: DONEPEZIL HCL 5 MG TAB PO SCH (20:31)
[2017-05-11] MEDS: ATORVASTATIN 20 MG TAB PO SCH (20:31)
[2017-05-12 05:41] VITALS: BP 157/70; PULSE 75; RESP 16; TEMP 98.2; O2SAT 93
[2017-05-12] MEDS: LEVOTHYROXINE SODIUM 100 MCG TAB PO SCH (05:48)
[2017-05-12] MEDS: LISINOPRIL 5 MG TAB PO SCH (08:12)
[2017-05-12] MEDS: NITROFURANTOIN MONOHYD MACROCR 100 MG CAP PO SCH ×2 (08:12→21:07)
[2017-05-12] MEDS: LACTOBACILLUS ACIDOPHILUS TAB PO SCH ×3 (08:13→17:18)
[2017-05-12] MEDS: NICOTINE 21 MG/24 HR PATCH T-DERMAL SCH (08:13)
[2017-05-12] MEDS: HYDROCHLOROTHIAZIDE 12.5 MG CAP PO SCH (08:13)
[2017-05-12] MEDS: REMOVE OLD PATCH T-DERMAL SCH (08:13)
--- NOTE | 2017-05-12 10:06 | HHI.PYPN ---
Subjective Remarks Patient seen in [place] [facility], patient case was continued by Waxing Machine Operator Reza for 2 weeks with the daughter to be health care surrogate. Patient alert diffusely confused somewhat feisty and irritable with the computer systems architect.. However she did not show much resistance when we were speaking about placement back in [place]. We are waiting client service representative from that facility to interview patient. Hopefully to get approval by them for return to that facility Review of Systems Except as stated in HPI: all other systems reviewed are Neg Mental Status Examination Appearance: Appropriate, Disheveled Consciousness: Alert Orientation: Person, Place Motor Activity: Normal gait Speech: Hesitant Language: Other Fund of Knowledge: Adequate Attention and Concentration: Inadequate Memory: Impaired Mood: Irritable Affect: Irritable Thought Process & Associations: Circumstantial, Disorganized Thought Content: Bizarre thinking Hallucination Type: None Delusion Type: None Suicidal Ideation: No Suicidal Plan: No Suicidal Intention: No Homicidal Ideation: No Homicidal Plan: No Homicidal Intention: No Insight: Fair Judgment: Impulsive Results Labs Date/Time Source Procedure Growth Status 05/05/17 01:35 Urine Random Urine Urine Culture - Final 50-100,000 CFU/ML MIXED GRAM POSITIVE... Complete Vitals/IOs Vital Signs Date Time Temp Pulse Resp B/P (MAP) Pulse Ox O2 Delivery O2 Flow Rate FiO2 05/12/17 05:41 98.2 75 16 157/70 (99) 93 Intake and Output 05/12/17 05/12/17 05/13/17 08:00 16:00 00:00 Intake Total 0 ml 120 ml Balance 0 ml 120 ml Assessment & Plan Problem List: (1) Dementia in other diseases classified elsewhere with behavioral disturbance ICD Codes: F02.81 - Dementia in other diseases classified elsewhere with behavioral disturbance (2) ALZHEIMER'S DISEASE WITH LATE ONSET ICD Codes: G30.1 - ALZHEIMER'S DISEASE WITH LATE ONSET Assessment & Plan Estimated LOS: days patient remains confused demented and somewhat feisty. For now continue treatment. Await visit from [facility] of staff Justification for Cont. Inpt. At this time patient decompensated placed at a lower level of care Discharge Planning Possible placement back at [facility] a Request HC Surrog/Guard Advoc?: Yes Silas Russo MD May 12, 2017 10:06
[2017-05-12] MEDS: QUEtiapine FUMARATE 25 MG TAB PO SCH ×2 (12:01→17:18)
[2017-05-12 19:30] VITALS: BP 137/63; PULSE 71; RESP 17; TEMP 98.7; O2SAT 97
[2017-05-12] MEDS: ATORVASTATIN 20 MG TAB PO SCH (21:07)
[2017-05-12] MEDS: DONEPEZIL HCL 5 MG TAB PO SCH (21:07)
[2017-05-13 06:00] VITALS: BP 103/54; PULSE 75; RESP 17; TEMP 96.9; O2SAT 93
[2017-05-13] MEDS: LEVOTHYROXINE SODIUM 100 MCG TAB PO SCH (06:10)
[2017-05-13] MEDS: LACTOBACILLUS ACIDOPHILUS TAB PO SCH ×2 (08:26→11:53)
[2017-05-13] MEDS: NITROFURANTOIN MONOHYD MACROCR 100 MG CAP PO SCH (08:26)
[2017-05-13] MEDS: LISINOPRIL 5 MG TAB PO SCH (08:27)
[2017-05-13] MEDS: HYDROCHLOROTHIAZIDE 12.5 MG CAP PO SCH (08:27)
[2017-05-13] MEDS: REMOVE OLD PATCH T-DERMAL SCH (08:27)
[2017-05-13] MEDS: NICOTINE 21 MG/24 HR PATCH T-DERMAL SCH (08:28)
[2017-05-13] MEDS: QUEtiapine FUMARATE 25 MG TAB PO SCH (11:53)
[2017-05-13] MEDS ORDERED: ATOR20TA15 PO (13:47)
[2017-05-13] MEDS ORDERED: LACT PO (13:47)
[2017-05-13] MEDS ORDERED: VENTAER INH (13:47)
[2017-05-13] MEDS ORDERED: SERO25TA PO (13:47)
[2017-05-13] MEDS ORDERED: MACR100C2 PO (13:47)
[2017-05-13] MEDS ORDERED: LEVO100T5 PO (13:47)
[2017-05-13] MEDS ORDERED: HYDR12.57 PO (13:47)
[2017-05-13] MEDS ORDERED: DONE10TA7 PO (13:47)
--- NOTE | 2017-05-13 13:55 | HHI.DS ---
Psychiatry Discharge Summary Inpatient Psychiatric care?: Yes Advance Directive: No Reason Not Provided: Pt states she doesn't have any Mental Health AdvanceDirective: No Health Care Proxy: No Admission Admission Date May 05, 2017 at 12:33 Admission Diagnosis: (1) ALZHEIMER'S DISEASE WITH LATE ONSET ICD Code: G30.1 - ALZHEIMER'S DISEASE WITH LATE ONSET (2) Dementia in other diseases classified elsewhere with behavioral disturbance ICD Code: F02.81 - Dementia in other diseases classified elsewhere with behavioral disturbance Brief History 76-year-old female admitted by this physician earlier this month, presents under a [place] act initiated by law enforcement for threatening to jump out of a window to kill herself and asking the special police officer to shoot her. Patient apparently has a history of mental illness but at this time presents as confused with memory deficits, word finding difficulty, concentration problems, and irrational behavior. She states she does not remember threatening to jump out of the window. She states she "probably" asked a media law faculty member to shoot her. She admits to multiple symptoms of depression including depressed mood, anhedonia, irritability, suicidal ideation, suicidal plan, irritability, etc. However, she remains a poor historian, allegedly as a result of memory deficits associated with dementia. She denies the use of alcohol or drugs. Her toxicology screen is negative. Tobacco Use In Past 30 Days: No Tobacco Past 30 Days Alcohol Use: 2-4 Times Per Month Hospital Course Patient's hospital course was uneventful, she show compliance of the medication , her cognitive issues remained consistent, though her behaviors were under control, needing just occasional redirection. Patient is also seen in [place] [facility], her case was continued for 2 weeks to allow for placement... Patient appears to be processing the placement well, is voicing a willingness to go to [facility]. There is a place is available there today. At this time I feel patient has reached maximum benefit of this hospitalization. Thus patient to be discharged today to [facility] with Rx 1 month follow-up medical services and mental health services through that facility, or a Dr. Gonzalez Results Blood Pressure 103 / 54 Vital Signs Date Time Temp Pulse Resp B/P (MAP) Pulse Ox O2 Delivery O2 Flow Rate FiO2 05/13/17 06:00 96.9 75 17 103/54 (70) 93 Laboratory Results Test 05/06/17 10:18 Cholesterol Level 195 MG/DL (120-200) HDL Cholesterol 60.4 MG/DL (40.0-60.0) Hemoglobin A1c 5.2 % (4.3-6.0) LDL Cholesterol 111 MG/DL (0-99) Triglycerides Level 117 MG/DL (42-150) Summary of Procedures None done Pending results at discharge: No Medications # of Antipsychotic meds at D/C: 1 Approp Antipsych med options 1 - Minimum of three failed multiple trials of monotherapy. 2 - Documented plan to taper to monotherapy due to previous use of multiple meds OR cross-taper in progress at D/C. 3 - Documentation of augmentation of Clozapine. 4 - Justification other than those listed in allowable values 1-3, document here : Discharge Discharge Date: May 13, 2017 Discharge Diagnosis: (1) ALZHEIMER'S DISEASE WITH LATE ONSET Diagnosis: Principal ICD Code: G30.1 - ALZHEIMER'S DISEASE WITH LATE ONSET (2) Dementia in other diseases classified elsewhere with behavioral disturbance Diagnosis: Principal ICD Code: F02.81 - Dementia in other diseases classified elsewhere with behavioral disturbance Pt Condition on Discharge: Stable Discharge Disposition: [facility]/LONG TERM Discharge Instructions Diet Instructions: As Tolerated, No Restrictions Activities you can perform: Regular-No Restrictions Scheduled Appointment: Dr Olivares Discharge Time > 30 minutes Mental Status Examination Appearance: Appropriate, Disheveled Consciousness: Alert Orientation: Person, Place Motor Activity: Normal gait Speech: Hesitant Language: Other Fund of Knowledge: Adequate Attention and Concentration: Inadequate Memory: Impaired Mood: Irritable Affect: Irritable Thought Process & Associations: Circumstantial, Disorganized Thought Content: Bizarre thinking Hallucination Type: None Delusion Type: None Suicidal Ideation: No Suicidal Plan: No Suicidal Intention: No Homicidal Ideation: No Homicidal Plan: No Homicidal Intention: No Insight: Fair Judgment: Impulsive Discharge/Advance Care Plan Health Problems: (1) Dementia in other diseases classified elsewhere with behavioral disturbance (2) ALZHEIMER'S DISEASE WITH LATE ONSET Goals to promote your health * To prevent worsening of your condition and complications * To maintain your health at the optimal level Directions to meet your goals Take your medications as prescribed Follow your dietary instruction Follow activity as directed Keep your appointments as scheduled Take your immunizations and boosters as scheduled If your symptoms worsen call your PCP, if no PCP go to Urgent Care Center or Emergency Room For 08/11 questions related to your inpatient stay or results of tests pending at discharge, please contact Dr. Silas Russo at Smoking is Dangerous to Your Health. Avoid second hand smoking Silas Russo MD May 13, 2017 13:55
== END 2017-05-13 15:20 | DRG 57 ==
LOC: NEPD 00:45 → NEDA 12:33 → H250 14:50
PROVIDERS: ADMIT Psychiatry & Neurology Psychiatry; ATTEND Psychiatry & Neurology Psychiatry
DX: G30.1 Alzheimer's disease with late onset (principal); F02.81 Dementia in other diseases classified elsewhere, unspecified severity, with behavioral disturbance; N39.0 Urinary tract infection, site not specified; I10 Essential (primary) hypertension; K70.9 Alcoholic liver disease, unspecified; J45.909 Unspecified asthma, uncomplicated; E78.5 Hyperlipidemia, unspecified; E03.9 Hypothyroidism, unspecified; Z85.038 Personal history of other malignant neoplasm of large intestine
CPT/HCPCS: 80053; 80061; 80307; 81001; 82306; 82607; 83036; 84443; 85025; 87086; 93005; 99285